=== PATIENT | male | born 1985 | race Caucasian/White ===

== ENCOUNTER 2023-05-06 09:25 | Emergency (ER) | payer MEDICARE, MEDICAID, SELFPAY ==
--- NOTE | ~2023-05-06 | US_ITS ---
EXAMINATION: US ABDOMEN LIMITED CLINICAL INFORMATION: Right upper quadrant pain. COMPARISON: None available. TECHNIQUE: Real-time imaging of the right upper quadrant abdominal viscera. FINDINGS: PANCREAS: Normal. LIVER: Mild increased echogenicity suggestive of fatty infiltration. There are multiple hyperechoic foci liver potentially reflecting hemangiomas. Largest of these anteriorly in the left lobe 7.5 cm. MR liver correlation would be recommended when feasible. GALLBLADDER: No appreciable calcific cholelithiasis. Gallbladder wall thickness 1.2 cm with gallbladder appearing partially contracted. Possible tiny pericholecystic fluid or fluid in the gallbladder wall. COMMON BILE DUCT: Normal in caliber measuring 0.3 cm in diameter. RIGHT KIDNEY: Normal. No hydronephrosis. No renal calculi or focal parenchymal lesions. The kidney measures 13.6 cm in maximum dimension. FREE FLUID: None. US/US abdomen limited IMPRESSION: Gallbladder wall is thickened at 1.2 cm. Possible tiny pericholecystic fluid. No calcific cholelithiasis or biliary dilatation. Multiple hyperechoic foci of the liver potentially reflecting hemangiomas. MR liver correlation would be recommended when feasible.
[2023-05-06 09:30] VITALS: BP 133/88; PULSE 75; RESP 18; TEMP 36.5; O2SAT 98; BMI 31.8
[2023-05-06 09:55] VITALS: BP 123/78; PULSE 61; RESP 18; TEMP 36.7; O2SAT 94
--- NOTE | 2023-05-06 10:05 | ED.ABDPAIN ---
HPI - Abdominal Pain General Chief Complaint: Abdominal Pain Stated Complaint: Nausea Stomach Pain Time Seen by Provider: 05/06/23 09:56 Source: patient Mode of arrival: ambulatory Limitations: no limitations History of Present Illness HPI narrative: 37-year-old male with a history of hepatitis-C which was treated 10 years ago, IV drug abuse last use 1 month ago, daily alcohol use who presents the ER with complaints of fatigue, nausea, vomiting, upper abdominal pain in the last week. Patient reports he woke up this morning noticing that his eyes were yellow in appearance. Patient reports he drinks 4-5 drinks daily. He does have history of IV drug use but has not used and more than 1 month. No fevers, chills, constipation, diarrhea Related Data Home Medications Medication Instructions Recorded Confirmed buprenorphine 12 mg-naloxone 3 mg 1 film sublingual DAILY 05/06/23 05/06/23 sublingual film (Suboxone) clonidine HCl 0.1 mg tablet 0.1 mg PO DAILY 05/06/23 05/06/23 clonidine HCl 0.3 mg tablet 0.3 mg PO BEDTIME 05/06/23 05/06/23 cyanocobalamin (vitamin B-12) 1,000 mcg PO DAILY 05/06/23 05/06/23 1,000 mcg tablet (Vitamin B-12) dextroamphetamine-amphetamine 15 1 tab PO DAILY 05/06/23 05/06/23 mg tablet dextroamphetamine-amphetamine ER 1 cap PO BID@0800,1200 05/06/23 05/06/23 30 mg 24hr capsule,extend release doxepin 50 mg capsule 50 mg PO BEDTIME 05/06/23 05/06/23 hydroxyzine pamoate 50 mg capsule 100 mg PO BEDTIME 05/06/23 05/06/23 pantoprazole 40 mg tablet,delayed 40 mg PO DAILY@0630 05/06/23 05/06/23 release Allergies Allergy/AdvReac Type Severity Reaction Status Date / Time No Known Allergies Allergy Verified 05/06/23 10:04 Review of Systems Review of Systems Yes all other systems are reviewed and are negative Constitutional: Reports no additional constitutional complaints, Denies body ache(s), Denies chills, Reports fatigue, Denies fever(s), Denies headache(s) and Denies weakness Eyes: Reports no additional eye complaints and Denies change in vision Reports system reviewed and no additional complaints, except as documented, Denies dizziness, Denies headache(s), Denies nasal congestion, Denies nasal discharge and Denies neck pain Cardiovascular: Reports no additional cardiovascular complaints, Denies chest pain, Denies leg edema and Denies dyspnea Respiratory: Reports no additional respiratory complaints, Denies cough and Denies dyspnea Gastrointestinal: Reports no additional gastrointestinal complaints, Reports abdominal pain, Denies diarrhea, Reports nausea and Reports vomiting Genitourinary: Denies urinary incontinence Musculoskeletal: Reports no additional musculoskeletal complaints, Denies back pain, Denies arthralgias, Denies joint swelling, Denies neck pain, Denies numbness and Denies tingling Skin/Breast: Reports system reviewed and no additional complaints, except as docu and Denies rash Reports system reviewed and no additional complaints, except as documented, Denies dizziness, Denies headache(s), Denies numbness, Denies tingling and Denies weakness Endocrine: Reports fatigue PMFSH Past Medical History Attestation statement: The following information was validated with the patient. Source: old records reviewed and nursing notes reviewed Social History Social History Alcohol intake: current Alcohol intake frequency: 3 or more drinks per day Alcohol type: hard liquor Smoked in Last 30 Days: Yes Substance Use Type: Former Substance User Advance Directives: No Advance Directives Information Provided: Yes Physical Exam ED Vital Signs: Vital Signs - 24 hr 05/06/23 09:30 05/06/23 09:55 05/06/23 11:10 Temperature 97.7 F 98.1 F Pulse Rate 75 61 60 Respiratory Rate 18 18 16 Blood Pressure 133/88 123/78 125/85 Pulse Oximetry 98 94 96 Oxygen Delivery Method Room Air Room Air Room Air 05/06/23 14:16 05/06/23 14:36 Temperature 97.7 F Pulse Rate 60 60 Respiratory Rate 10 L 14 Blood Pressure 122/84 140/78 H Pulse Oximetry 96 98 Oxygen Delivery Method Room Air Room Air BMI result Body Mass Index 31.8 Const General: cooperative, healthy appearing, comfortable and no acute distress Orientation/consciousness: patient oriented x3 Limitations: no limitations HENMT Head: Yes normal to inspection Eyes Other: scleral icterus Neck Neck: Yes normal visual inspection Chest Chest palpation & inspection: normal inspection of the chest Resp Effort & Inspection: normal respiratory effort Auscultation: clear to auscultation bilaterally Cardio Rate: regular rate Rhythm: regular rhythm Peripheral pulses: Peripheral pulses 2+ throughout GI Inspection: Yes normal to inspection Palpation (GI): Soft to palpation and Tenderness to palpation present (GI) (Epigastric tenderness with no rebound or guarding) General: Yes no CVA tenderness Back/Spine/Pelvis Back: no CVA tenderness Thoracic/Lumbar Spine: thoracic and lumbar spine normal to inspection Skin General skin exam: no rashes or lesions noted Neuro General: patient oriented x3 Cognition (Neuro): normal cognition Gait exam (Neuro): Normal gait present Course Course Course Narrative: Sign out to Ehsan ALVA pending US and admit Medical Decision Making Medical Decision Making [facility] Narrative: This is 37-year-old male who has a history of daily alcohol use, substance abuse, hep C which was treated 10 years ago who presents to the ER with 1 week of fatigue, upper abdominal pain, nausea and vomiting with waking with yellowing of the eyes. On exam patient with abdominal tenderness epigastric with no rebound or guarding Scleral icterus on exam Will need labs Likely advanced imaging Will place IV and give IV fluid, antimetic Differential Diagnosis Differential Diagnoses: The differential diagnosis associated with the presentation includes Cholecystitis, cholelithiasis, pancreatitis, alcoholic hepatitis, hepatitis Low concern for ingestion to suggest apap toxicity Admission/Observation Consideration of admission/observation: Escalation of care including admission/observation considered Acute hepatic failure Consult Healthcare Provider Management of the patient was discussed with: Hospitalist Spoke to Dr. Huang-if no surgical intervention they will admit the patient Lab Data [facility] Lab Attestation statement: I reviewed the patient's lab results. 05/06/23 10:29 05/06/23 12:18 Labs: Lab Results 05/06/23 05/06/23 05/06/23 Range/Units 10:14 10:14 10:29 WBC (4.8-10.8) X10*3/uL RBC (4.60-5.80) X10*6/uL Hgb (14.0-18.0) g/dl Hct (42.0-52.0) % MCV (80.0-98.0) fL MCH (27.0-33.0) pg MCHC (31.0-36.0) g/dl RDW (11.0-16.0) % Plt Count (160-400) X10*3/uL MPV (9.4-12.4) fL Immature Gran % (Auto) (0.0-0.4) % Neut % (Auto) (45-73) % Lymph % (Auto) (20-40) % [place] % (Auto) (2-11) % Eos % (Auto) (0-4) % Baso % (Auto) (0-2) % Lymph # (Auto) (1.2-4.9) X10*3/uL [place] # (Auto) (0.1-1.2) X10*3/uL Eos # (Auto) (0.0-0.4) X10*3/uL Baso # (Auto) (0.0-0.2) X10*3/uL Abs Immat Gran (auto) (0.00-0.03) X10*3/uL Absolute Neuts (auto) (2.0-8.3) x10*3/uL Absolute Nucleated RBC (0.0-0.012) X10*3/uL Nucleated RBC % (auto) (0.0-0.2) /100WBC PT (10.0-13.1) SEC INR (0.9-1.1) Sodium (135-145) mmol/L Potassium (3.3-5.1) mmol/L Chloride (96-108) mmol/L Carbon Dioxide (22-29) mmol/L Anion Gap (12-20) BUN (9-16) mg/dL Creatinine (0.5-1.4) mg/dL Estim Creat Clear Calc Estimated GFR Random Glucose (60-115) mg/dL Calcium (8.4-10.2) mg/dL Magnesium (1.6-2.6) mg/dL Total Bilirubin (0.0-1.0) mg/dL Direct Bilirubin (0.0-0.5) mg/dL AST (5-37) U/L ALT (0-40) U/L Alkaline Phosphatase (39-117) U/L Total Protein (6.5-8.0) g/dL Albumin (3.5-5.0) g/dL Lipase (8-78) U/L Urine Color [place] Urine Appearance Hazy Urine pH 5.5 (5.0-9.0) Ur Specific [place] 1.020 (1.005-1.025) Urine Protein See Note (Neg-Trace) mg/dL Urine Glucose (UA) Negative (Negative) mg/dL Urine Ketones See Note (Negative) mg/dL Urine Blood Trace (Negative) Urine Nitrite See Note (Negative) Ur Leukocyte Esterase Negative (Negative) Urine RBC 11-20 H (0-2) /HPF Urine WBC 0-5 (0-5) /HPF Ur Squamous Epith Cells 0-2 (0-2) /HPF Urine Bacteria None Seen (None Seen) Hyaline Casts 3-5 (0-2) /LPF Urine Opiates Screen Not Detected (Not Detect) Urine Fentanyl Screen POSITIVE H (Not Detect) Acetaminophen (<30) mcg/mL Ur Barbiturates Screen Not Detected (Not Detect) Ur Phencyclidine Scrn Not Detected (Not Detect) Ur Amphetamines Screen POSITIVE H (Not Detect) U Benzodiazepines Scrn Not Detected (Not Detect) Urine Cocaine Screen Not Detected (Not Detect) U Marijuana (THC) Screen POSITIVE H (Not Detect) Ethyl Alcohol mg/dL Hepatitis A IgM Ab Nonreactive (Nonreactive) Hep Bs Antigen Negative (Negative) Hep Bs Antibody REACTIVE (Nonreactive) Hep B Core Total Ab Nonreactive (Nonreactive) Hepatitis C Ab (EIA) Reactive H (Nonreactive) 05/06/23 05/06/23 05/06/23 Range/Units 10:29 10:29 10:29 WBC 9.1 (4.8-10.8) X10*3/uL RBC 5.32 (4.60-5.80) X10*6/uL Hgb 15.6 (14.0-18.0) g/dl Hct 45.1 (42.0-52.0) % MCV 84.8 (80.0-98.0) fL MCH 29.3 (27.0-33.0) pg MCHC 34.6 (31.0-36.0) g/dl RDW 14.1 (11.0-16.0) % Plt Count 115 L (160-400) X10*3/uL MPV 12.4 (9.4-12.4) fL Immature Gran % (Auto) 0.2 (0.0-0.4) % Neut % (Auto) 38.8 L (45-73) % Lymph % (Auto) 46.9 H (20-40) % [place] % (Auto) 11.4 H (2-11) % Eos % (Auto) 2.2 (0-4) % Baso % (Auto) 0.5 (0-2) % Lymph # (Auto) 4.3 (1.2-4.9) X10*3/uL [place] # (Auto) 1.0 (0.1-1.2) X10*3/uL Eos # (Auto) 0.2 (0.0-0.4) X10*3/uL Baso # (Auto) 0.1 (0.0-0.2) X10*3/uL Abs Immat Gran (auto) 0.02 (0.00-0.03) X10*3/uL Absolute Neuts (auto) 3.5 (2.0-8.3) x10*3/uL Absolute Nucleated RBC 0.000 (0.0-0.012) X10*3/uL Nucleated RBC % (auto) 0.0 (0.0-0.2) /100WBC PT 11.2 (10.0-13.1) SEC INR 1.0 (0.9-1.1) Sodium (135-145) mmol/L Potassium (3.3-5.1) mmol/L Chloride (96-108) mmol/L Carbon Dioxide (22-29) mmol/L Anion Gap (12-20) BUN (9-16) mg/dL Creatinine (0.5-1.4) mg/dL Estim Creat Clear Calc Estimated GFR Random Glucose (60-115) mg/dL Calcium (8.4-10.2) mg/dL Magnesium (1.6-2.6) mg/dL Total Bilirubin (0.0-1.0) mg/dL Direct Bilirubin (0.0-0.5) mg/dL AST (5-37) U/L ALT (0-40) U/L Alkaline Phosphatase (39-117) U/L Total Protein (6.5-8.0) g/dL Albumin (3.5-5.0) g/dL Lipase (8-78) U/L Urine Color Urine Appearance Urine pH (5.0-9.0) Ur Specific [place] (1.005-1.025) Urine Protein (Neg-Trace) mg/dL Urine Glucose (UA) (Negative) mg/dL Urine Ketones (Negative) mg/dL Urine Blood (Negative) Urine Nitrite (Negative) Ur Leukocyte Esterase (Negative) Urine RBC (0-2) /HPF Urine WBC (0-5) /HPF Ur Squamous Epith Cells (0-2) /HPF Urine Bacteria (None Seen) Hyaline Casts (0-2) /LPF Urine Opiates Screen (Not Detect) Urine Fentanyl Screen (Not Detect) Acetaminophen (<30) mcg/mL Ur Barbiturates Screen (Not Detect) Ur Phencyclidine Scrn (Not Detect) Ur Amphetamines Screen (Not Detect) U Benzodiazepines Scrn (Not Detect) Urine Cocaine Screen (Not Detect) U Marijuana (THC) Screen (Not Detect) Ethyl Alcohol < 10 mg/dL Hepatitis A IgM Ab (Nonreactive) Hep Bs Antigen (Negative) Hep Bs Antibody (Nonreactive) Hep B Core Total Ab (Nonreactive) Hepatitis C Ab (EIA) (Nonreactive) 05/06/23 05/06/23 Range/Units 12:18 16:05 WBC (4.8-10.8) X10*3/uL RBC (4.60-5.80) X10*6/uL Hgb (14.0-18.0) g/dl Hct (42.0-52.0) % MCV (80.0-98.0) fL MCH (27.0-33.0) pg MCHC (31.0-36.0) g/dl RDW (11.0-16.0) % Plt Count (160-400) X10*3/uL MPV (9.4-12.4) fL Immature Gran % (Auto) (0.0-0.4) % Neut % (Auto) (45-73) % Lymph % (Auto) (20-40) % [place] % (Auto) (2-11) % Eos % (Auto) (0-4) % Baso % (Auto) (0-2) % Lymph # (Auto) (1.2-4.9) X10*3/uL [place] # (Auto) (0.1-1.2) X10*3/uL Eos # (Auto) (0.0-0.4) X10*3/uL Baso # (Auto) (0.0-0.2) X10*3/uL Abs Immat Gran (auto) (0.00-0.03) X10*3/uL Absolute Neuts (auto) (2.0-8.3) x10*3/uL Absolute Nucleated RBC (0.0-0.012) X10*3/uL Nucleated RBC % (auto) (0.0-0.2) /100WBC PT (10.0-13.1) SEC INR (0.9-1.1) Sodium 134 L (135-145) mmol/L Potassium 4.9 (3.3-5.1) mmol/L Chloride 110 H (96-108) mmol/L Carbon Dioxide 18 L (22-29) mmol/L Anion Gap 11 L (12-20) BUN 7 L (9-16) mg/dL Creatinine 0.51 (0.5-1.4) mg/dL Estim Creat Clear Calc 249.9 Estimated GFR > 60 Random Glucose 114 (60-115) mg/dL Calcium 7.7 L (8.4-10.2) mg/dL Magnesium 1.8 (1.6-2.6) mg/dL Total Bilirubin 6.3 H (0.0-1.0) mg/dL Direct Bilirubin 3.5 H (0.0-0.5) mg/dL AST 369 H (5-37) U/L ALT 724 H (0-40) U/L Alkaline Phosphatase 363 H (39-117) U/L Total Protein 5.6 L (6.5-8.0) g/dL Albumin 2.4 L (3.5-5.0) g/dL Lipase 26 (8-78) U/L Urine Color Urine Appearance Urine pH (5.0-9.0) Ur Specific [place] (1.005-1.025) Urine Protein (Neg-Trace) mg/dL Urine Glucose (UA) (Negative) mg/dL Urine Ketones (Negative) mg/dL Urine Blood (Negative) Urine Nitrite (Negative) Ur Leukocyte Esterase (Negative) Urine RBC (0-2) /HPF Urine WBC (0-5) /HPF Ur Squamous Epith Cells (0-2) /HPF Urine Bacteria (None Seen) Hyaline Casts (0-2) /LPF Urine Opiates Screen (Not Detect) Urine Fentanyl Screen (Not Detect) Acetaminophen < 17 (<30) mcg/mL Ur Barbiturates Screen (Not Detect) Ur Phencyclidine Scrn (Not Detect) Ur Amphetamines Screen (Not Detect) U Benzodiazepines Scrn (Not Detect) Urine Cocaine Screen (Not Detect) U Marijuana (THC) Screen (Not Detect) Ethyl Alcohol mg/dL Hepatitis A IgM Ab (Nonreactive) Hep Bs Antigen (Negative) Hep Bs Antibody (Nonreactive) Hep B Core Total Ab (Nonreactive) Hepatitis C Ab (EIA) (Nonreactive) Independent Interpretation I performed an independent interpretation of an: Plain X-Ray and Ultrasound Radiology Impression Discussion of test interpretation with radiology: I have reviewed the radiologist's reading. Medications Administered Discontinued Medications Generic Name Dose Route Start Last Admin Trade Name Freq PRN Reason Stop Dose Admin Sodium Chloride 1,000 mls @ 999 mls/hr 05/06/23 10:01 05/06/23 11:53 Ns IV 05/06/23 11:01 Infused .Q1H1M STA Infusion Morphine Sulfate 4 mg 05/06/23 14:20 05/06/23 14:47 Morphine Sulfate 4 Mg/Ml Cartridge IVPUSH 05/06/23 14:21 4 mg ONCE ONE Administration Protocol Nicotine 21 mg 05/06/23 12:11 05/06/23 12:16 Nicotine 21 Mg Patch.[id number] TRANSDERMA 05/06/23 12:12 21 mg ONCE ONE Administration Ondansetron HCl 4 mg 05/06/23 10:01 05/06/23 11:13 Ondansetron Hcl 4 Mg/2 Ml Vial IVPUSH 05/06/23 10:02 4 mg ONCE ONE Administration Discharge Plan Discharge Clinical Impression: Acute hepatic failure, Hepatitis C Patient Disposition: Admitted As Inpatient
[2023-05-06 10:21] LABS: Appearance Urine Hazy; Color Urine Orange; Glucose Urine UA Negative (Negative); Leukocyte Esterase Urine Negative (Negative); PH 5.5 (5.0-9.0); UMIC TRIGGER UACC YES; Urine Blood Trace (Negative)
[2023-05-06 10:26] LABS: Bacteria Urine None Seen (None Seen); Squamous Epithelial Cell Urine 0-2 /HPF (0-2); WBC Urine 0-5 /HPF (0-5)
[2023-05-06] MEDS: 0.9 % Sodium Chloride 1,000 ML 999 ML IV (10:30)
[2023-05-06 10:35] LABS: MANUAL DIFF FLAG NO
[2023-05-06 10:42] LABS: Basophils Absolute Auto 0.1 X10*3/uL (0.0-0.2); Basophils Percent Auto 0.5 % (0-2); Eosinophils Absolute Auto 0.2 X10*3/uL (0.0-0.4); Eosinophils Percent Auto 2.2 % (0-4); Hematocrit 45.1 % (42.0-52.0); Hemoglobin 15.6 g/dl (14.0-18.0); Imm Gran Abs Auto 0.02 X10*3/uL (0.00-0.03); Imm Gran Pct Auto 0.2 % (0.0-0.4); Lymphocytes Absolute Auto 4.3 X10*3/uL (1.2-4.9); Lymphocytes Percent Auto 46.9 % (20-40); Mean Corpuscular HGB Conc 34.6 g/dl (31.0-36.0); Mean Corpuscular Hemoglobin 29.3 pg (27.0-33.0); Mean Corpuscular Volume 84.8 fL (80.0-98.0); Mean Platelet Volume 12.4 fL (9.4-12.4); Monocytes Percent Auto 11.4 % (2-11); Neutrophils Absolute Auto 3.5 x10*3/uL (2.0-8.3); Neutrophils Percent Auto 38.8 % (45-73); Platelet Count 115 X10*3/uL (160-400); Prothrombin Time 11.2 SEC (10.0-13.1); Red Blood Count 5.32 X10*6/uL (4.60-5.80); Red Cell Distribution Width 14.1 % (11.0-16.0); White Blood Count 9.1 X10*3/uL (4.8-10.8)
[2023-05-06 11:10] VITALS: BP 125/85; PULSE 60; RESP 16; O2SAT 96
[2023-05-06] MEDS: ondansetron HCL 4 MG/2 ML VIAL IVPUSH (11:13)
[2023-05-06 11:27] LABS: Ethanol < 10 mg/dL
[2023-05-06 11:49] LABS: HBS Num1 163.53 mIU/mL (0-7.99); HBc Num1 0.24 S/CO (0.00-0.79); HBsAGNum1 0.27 S/CO (0.00-0.99); Hepatitis A Antibody IgM 0.25 Index (0-0.79); Hepatitis B Core Antibody Nonreactive (Nonreactive); Hepatitis B Surface Antigen Negative (Negative); ~Hepatitis A Antibody IgM Nonreactive (Nonreactive); ~Hepatitis B Surface Antibody REACTIVE (Nonreactive); ~Hepatitis C Antibody Reactive (Nonreactive)
[2023-05-06] MEDS: Nicotine 21 MG PATCH.TD24 TRANSDERMA (12:16)
[2023-05-06 13:23] LABS: Amphetamine Screen Urine POSITIVE (Not Detect); Barbiturates, Urine Not Detected (Not Detect); Benzodiazepines Screen Urine Not Detected (Not Detect); Cannabinoid Screen Urine POSITIVE (Not Detect); Cocaine Screen Urine Not Detected (Not Detect); Fentanyl, urine POSITIVE (Not Detect); Opiate Screen Urine Not Detected (Not Detect); Phencyclidine Screen Urine Not Detected (Not Detect)
[2023-05-06 13:54] LABS: Anion Gap 11 (12-20)
[2023-05-06 14:02] LABS: Alanine Aminotransferase 724 U/L (0-40); Albumin Level 2.4 g/dL (3.5-5.0); Alkaline Phosphatase 363 U/L (39-117); Aspartate Amino Transferase 369 U/L (5-37); Bilirubin Direct 3.5 mg/dL (0.0-0.5); Bilirubin Total 6.3 mg/dL (0.0-1.0); Blood Urea Nitrogen 7 mg/dL (9-16); Calcium 7.7 mg/dL (8.4-10.2); Carbon Dioxide 18 mmol/L (22-29); Chloride 110 mmol/L (96-108); Creatinine Clr Calc Pharmacy 249.9; Estimated Glomerular Filt Rate > 60; Glucose Random 114 mg/dL (60-115); Lipase 26 U/L (8-78); Magnesium 1.8 mg/dL (1.6-2.6); Potassium 4.9 mmol/L (3.3-5.1); Sodium 134 mmol/L (135-145); Total Protein 5.6 g/dL (6.5-8.0)
[2023-05-06 14:16] VITALS: BP 122/84; PULSE 60; RESP 10; O2SAT 96
[2023-05-06 14:36] VITALS: BP 140/78; PULSE 60; RESP 14; TEMP 36.5; O2SAT 98
[2023-05-06] MEDS: Morphine Sulfate 4 MG/ML CARTRIDGE IVPUSH (14:47)
--- NOTE | 2023-05-06 14:56 | PC.NURSE ---
pt a&ox4, vss, medicated for 7/10 abd pain, CIWA 0, denies any nausea at this time. resting quietly, pending u/s.
--- NOTE | 2023-05-06 15:43 | PHA.MEDREC ---
Pharmacy Consult ? Medication Reconciliation Pharmacy has completed the medication reconciliation. spoke with patient and confirmed his medications. He also has prescriptions for gabapentin and pregabalin but states he is not currently taking those due to his situation.
[2023-05-06 16:30] LABS: Acetaminophen LAB < 17 mcg/mL (<30)
--- NOTE | 2023-05-06 17:03 | PM.IMHP ---
History of Present Illness Date of Service: 05/06/23 Attending physician on admission: Prasad Huang Chief Complaint: Abdominal Pain Pt is a 37-year-old male with a PMH significant for?hepatitis C treated 10 years ago, IVDU last used around 1 month ago, daily alcohol consumption of 4-5 drinks, who presents to the ED with? In the ED labs were significant for total bilirubin of 6.3, AST 369, ALT 724, alk-phos 363, albumin 2.4, UA likely negative for UTI. Tox screen positive for fentanyl, amphetamines, and marijuana. Alcohol less than 10. CXR showed Abdominal ultrasound found gallbladder wall thickening of 1.2 cm with possible tiny pericholecystic fluid. Also found multiple hyperechoic foci the liver potentially affecting hemangiomas. EKG demonstrated Pt was treated with IVF, ondansetron, and morphine. Pt will be admitted to the hospital [facility] Social History Alcohol intake: current Alcohol intake frequency: 3 or more drinks per day Alcohol type: hard liquor Smoked in Last 30 Days: Yes Substance Use Type: Former Substance User Advance Directives: No Advance Directives Information Provided: Yes Meds Allergies Allergy/AdvReac Type Severity Reaction Status Date / Time No Known Allergies Allergy Verified 05/06/23 10:04 Active Medications: Current Medications Pharmacy Consult (Consult Rx Perform Med Rec) 1 each MISCELLANE ONCE PRN PRN Reason: Consult order Home Medications Medication Instructions Recorded Confirmed Last Taken Type buprenorphine 12 mg-naloxone 3 mg 1 film sublingual DAILY 05/06/23 05/06/23 Unknown History sublingual film (Suboxone) clonidine HCl 0.1 mg tablet 0.1 mg PO DAILY 05/06/23 05/06/23 Unknown History clonidine HCl 0.3 mg tablet 0.3 mg PO BEDTIME 05/06/23 05/06/23 Unknown History cyanocobalamin (vitamin B-12) 1,000 mcg PO DAILY 05/06/23 05/06/23 Unknown History 1,000 mcg tablet (Vitamin B-12) dextroamphetamine-amphetamine 15 1 tab PO DAILY 05/06/23 05/06/23 Unknown History mg tablet dextroamphetamine-amphetamine ER 1 cap PO BID@0800,1200 05/06/23 05/06/23 Unknown History 30 mg 24hr capsule,extend release doxepin 50 mg capsule 50 mg PO BEDTIME 05/06/23 05/06/23 Unknown History hydroxyzine pamoate 50 mg capsule 100 mg PO BEDTIME 05/06/23 05/06/23 Unknown History pantoprazole 40 mg tablet,delayed 40 mg PO DAILY@0630 05/06/23 05/06/23 Unknown History release Physical Exam Vital Signs and Narrative: Vital Signs: Last Vital Signs Temp 97.7 F 05/06/23 14:36 Pulse 60 05/06/23 14:36 Resp 14 05/06/23 14:36 BP 140/78 H 05/06/23 14:36 Pulse Ox 98 05/06/23 14:36 O2 Del Method Room Air 05/06/23 14:36 BMI result Body Mass Index 31.8 Results Labs 05/06/23 10:29 05/06/23 12:18 Labs: Laboratory Results - last 24 hr 05/06/23 05/06/23 05/06/23 10:14 10:14 10:29 MCV MCH MCHC RDW Plt Count MPV Immature Gran % (Auto) Neut % (Auto) Lymph % (Auto) [place] % (Auto) Eos % (Auto) Baso % (Auto) Lymph # (Auto) [place] # (Auto) Eos # (Auto) Baso # (Auto) Abs Immat Gran (auto) Absolute Neuts (auto) Absolute Nucleated RBC Nucleated RBC % (auto) PT INR Anion Gap Estim Creat Clear Calc Estimated GFR Random Glucose Calcium Magnesium Total Bilirubin Direct Bilirubin AST ALT Alkaline Phosphatase Total Protein Albumin Lipase Urine Color [place] Urine Appearance Hazy Urine pH 5.5 Ur Specific [place] 1.020 Urine Protein See Note Urine Glucose (UA) Negative Urine Ketones See Note Urine Blood Trace Urine Nitrite See Note Ur Leukocyte Esterase Negative Urine RBC 11-20 H Urine WBC 0-5 Ur Squamous Epith Cells 0-2 Urine Bacteria None Seen Hyaline Casts 3-5 Urine Opiates Screen Not Detected Urine Fentanyl Screen POSITIVE H Acetaminophen Ur Barbiturates Screen Not Detected Ur Phencyclidine Scrn Not Detected Ur Amphetamines Screen POSITIVE H U Benzodiazepines Scrn Not Detected Urine Cocaine Screen Not Detected U Marijuana (THC) Screen POSITIVE H Ethyl Alcohol Hepatitis A IgM Ab Nonreactive Hep Bs Antigen Negative Hep Bs Antibody REACTIVE Hep B Core Total Ab Nonreactive Hepatitis C Ab (EIA) Reactive H 05/06/23 05/06/23 05/06/23 10:29 10:29 10:29 MCV 84.8 MCH 29.3 MCHC 34.6 RDW 14.1 Plt Count 115 L MPV 12.4 Immature Gran % (Auto) 0.2 Neut % (Auto) 38.8 L Lymph % (Auto) 46.9 H [place] % (Auto) 11.4 H Eos % (Auto) 2.2 Baso % (Auto) 0.5 Lymph # (Auto) 4.3 [place] # (Auto) 1.0 Eos # (Auto) 0.2 Baso # (Auto) 0.1 Abs Immat Gran (auto) 0.02 Absolute Neuts (auto) 3.5 Absolute Nucleated RBC 0.000 Nucleated RBC % (auto) 0.0 PT 11.2 INR 1.0 Anion Gap Estim Creat Clear Calc Estimated GFR Random Glucose Calcium Magnesium Total Bilirubin Direct Bilirubin AST ALT Alkaline Phosphatase Total Protein Albumin Lipase Urine Color Urine Appearance Urine pH Ur Specific [place] Urine Protein Urine Glucose (UA) Urine Ketones Urine Blood Urine Nitrite Ur Leukocyte Esterase Urine RBC Urine WBC Ur Squamous Epith Cells Urine Bacteria Hyaline Casts Urine Opiates Screen Urine Fentanyl Screen Acetaminophen Ur Barbiturates Screen Ur Phencyclidine Scrn Ur Amphetamines Screen U Benzodiazepines Scrn Urine Cocaine Screen U Marijuana (THC) Screen Ethyl Alcohol < 10 Hepatitis A IgM Ab Hep Bs Antigen Hep Bs Antibody Hep B Core Total Ab Hepatitis C Ab (EIA) 05/06/23 05/06/23 12:18 16:05 MCV MCH MCHC RDW Plt Count MPV Immature Gran % (Auto) Neut % (Auto) Lymph % (Auto) [place] % (Auto) Eos % (Auto) Baso % (Auto) Lymph # (Auto) [place] # (Auto) Eos # (Auto) Baso # (Auto) Abs Immat Gran (auto) Absolute Neuts (auto) Absolute Nucleated RBC Nucleated RBC % (auto) PT INR Anion Gap 11 L Estim Creat Clear Calc 249.9 Estimated GFR > 60 Random Glucose 114 Calcium 7.7 L Magnesium 1.8 Total Bilirubin 6.3 H Direct Bilirubin 3.5 H AST 369 H ALT 724 H Alkaline Phosphatase 363 H Total Protein 5.6 L Albumin 2.4 L Lipase 26 Urine Color Urine Appearance Urine pH Ur Specific [place] Urine Protein Urine Glucose (UA) Urine Ketones Urine Blood Urine Nitrite Ur Leukocyte Esterase Urine RBC Urine WBC Ur Squamous Epith Cells Urine Bacteria Hyaline Casts Urine Opiates Screen Urine Fentanyl Screen Acetaminophen < 17 Ur Barbiturates Screen Ur Phencyclidine Scrn Ur Amphetamines Screen U Benzodiazepines Scrn Urine Cocaine Screen U Marijuana (THC) Screen Ethyl Alcohol Hepatitis A IgM Ab Hep Bs Antigen Hep Bs Antibody Hep B Core Total Ab Hepatitis C Ab (EIA) Imaging Radiologist's Impressions: Impressions Abdomen Ultrasound 05/06/23 15:52 IMPRESSION: Gallbladder wall is thickened at 1.2 cm. Possible tiny pericholecystic fluid. No calcific cholelithiasis or biliary dilatation. Multiple hyperechoic foci of the liver potentially reflecting hemangiomas. MR liver correlation would be recommended when feasible. Assessment and Plan Plan Will get HIDA scan tomorrow GI consult Hepatitis C Pt treated for Hep C around 10 years ago Hep C AB positive Will check viarl load Time Spent With Patient Time: Total time managing care of this patient today ____ minutes.
[2023-05-06 17:42] VITALS: BP 136/97; PULSE 83; RESP 13; TEMP 36.8; O2SAT 98
--- NOTE | 2023-05-06 17:44 | PC.NURSE ---
provider at bedside- pt requesting AMA. vs stable. aox4. CIWA 0.
[2023-05-08 15:28] LABS: HCV Log PCR 3.49 Log IU/mL (NOT DETECTED); HepC Viral Load 3100 IU/mL (NOT DETECTED)
== END 2023-05-06 18:00 | disposition left against medical advice (07) ==
PROVIDERS: Nurse Practitioner Family; Student in an Organized Health Care Education/Training Program; Emergency Provider Emergency Medicine; PCP Internal Medicine
DX: K72.00 Acute and subacute hepatic failure without coma (principal); B19.20 Unspecified viral hepatitis C without hepatic coma; R10.13 Epigastric pain; F19.10 Other psychoactive substance abuse, uncomplicated; F11.20 Opioid dependence, uncomplicated; F17.210 Nicotine dependence, cigarettes, uncomplicated; Z79.899 Other long term (current) drug therapy
CPT/HCPCS: 36415; 76705; 80048; 80076; 80143; 80307; 81001; 83690; 83735; 85025; 85610; 86704; 86706; 86709; 86803; 87340; 87522; 99285; J2270; J2405

== ENCOUNTER 2023-05-07 09:43 | Inpatient (IN) | payer MEDICARE, MEDICAID, SELFPAY ==
--- NOTE | ~2023-05-07 | MR_ITS ---
EXAMINATION: MR ABDOMEN WITHOUT CONTRAST CLINICAL INFORMATION: Elevated liver function tests COMPARISON: Previous ultrasound April 2023 TECHNIQUE: MR abdomen is performed without gadolinium contrast. MRCP sequences were also performed. FINDINGS: LUNG BASES: The visualized lung bases are unremarkable. LIVER, GALLBLADDER, AND BILIARY TREE: The liver is slightly enlarged, right lobe measuring 23.7 cm in length. The liver is normal in contour and signal. No focal hepatic lesion or biliary ductal dilatation is present. The common bile duct measures 5 mm. No common bile duct stone seen. The gallbladder is normal in size. The gallbladder wall is upper normal in size measuring 3 mm. There is pericholecystic fluid. No gallstones are seen. PANCREAS: Unremarkable. The main pancreatic duct is normal SPLEEN: Upper normal in size measuring 12.8 cm in length. ADRENAL GLANDS: Unremarkable. KIDNEYS AND URETERS: The kidneys are normal in size and shape. No hydronephrosis. No perinephric stranding. GASTROINTESTINAL TRACT: No bowel obstruction. No ascites or fluid collection. ABDOMINAL WALL: No significant hernia is appreciated. LYMPH NODES: No lymphadenopathy. VASCULAR: Unremarkable. OSSEOUS STRUCTURES: Marrow signal normal. MR/MR MRCP IMPRESSION: Enlarged liver. Normal caliber intra and extrahepatic bile ducts. No common bile duct stone seen. Upper normal thickness gallbladder wall. Pericholecystic fluid. No gallstones seen. Differential would gallbladder changes related to liver disease, cholangitis and acalculous cholecystitis. If there is clinical suspicion of acalculous cholecystitis, HIDA scan would be recommended. Upper normal-size spleen.
[2023-05-07 09:44] VITALS: BP 136/72; PULSE 80; RESP 18; TEMP 36.7; O2SAT 98; BMI 29.8
[2023-05-07 10:15] VITALS: BP 129/79; PULSE 70; RESP 16; TEMP 36.7; O2SAT 96
--- NOTE | 2023-05-07 10:29 | ED_ITS ---
HPI - General Adult General Chief complaint: Abdominal Pain Stated complaint: was here yesterday for liver failure Time Seen by Provider: 05/07/23 10:02 Source: patient Mode of arrival: ambulatory Limitations: no limitations History of Present Illness HPI narrative: 37 yold male with diagnosed with liver failure, has Hep C, and needed HIDA Scan yesterday and needed to be admitted, but signed out AMA returning to the ED to be admitted. Patient states sitll having same symptoms from yesterday whichc consisted of abdominal pain. patient has known gallbladder wall thickening. Related Data Home Medications Medication Instructions Recorded Confirmed buprenorphine 12 mg-naloxone 3 mg 1 film sublingual DAILY 05/06/23 05/07/23 sublingual film (Suboxone) clonidine HCl 0.3 mg tablet 0.3 mg PO BEDTIME 05/06/23 05/07/23 cyanocobalamin (vitamin B-12) 1,000 mcg PO DAILY 05/06/23 05/07/23 1,000 mcg tablet (Vitamin B-12) dextroamphetamine-amphetamine 15 1 tab PO DAILY@1800 05/06/23 05/07/23 mg tablet dextroamphetamine-amphetamine ER 1 cap PO BID@0800,1200 05/06/23 05/07/23 30 mg 24hr capsule,extend release doxepin 50 mg capsule 50 mg PO BEDTIME 05/06/23 05/07/23 hydroxyzine pamoate 50 mg capsule 100 mg PO BEDTIME 05/06/23 05/07/23 pantoprazole 40 mg tablet,delayed 40 mg PO DAILY@0630 05/06/23 05/07/23 release buprenorphine 300 mg/1.5 mL 300 mg subcut QMONTH 05/07/23 05/07/23 solution,exten.rel.subcutaneous syringe (Sublocade) gabapentin 300 mg capsule 600 mg PO TID 05/07/23 05/07/23 pregabalin 225 mg capsule 450 mg PO DAILY@1900 05/07/23 05/07/23 Allergies Allergy/AdvReac Type Severity Reaction Status Date / Time No Known Allergies Allergy Verified 05/06/23 10:04 Review of Systems Review of Systems: Abbdominal pain. Yes all other systems are reviewed and are negative PMFSH Social History Social History Alcohol intake: former Patient Tobacco Use Status: Current everyday Tobacco user Smoked in Last 30 Days: Yes Use of substances other than those prescribed or required for medical reasons: No Substance Use Type: Heroin Substance Use Frequency: Daily Last Used Substance: Just Prior to Admission Advance Directives: No Advance Directives Information Provided: No Nutrition Risks: No Nutritional Risk Physical Exam ED Vital Signs: Vital Signs - 24 hr 05/07/23 09:44 05/07/23 10:15 05/07/23 12:20 Temperature 98.1 F 98.1 F 98.7 F Pulse Rate 80 70 70 Respiratory Rate 18 16 14 Blood Pressure 136/72 129/79 146/85 H Pulse Oximetry 98 96 95 Oxygen Delivery Method Room Air Room Air Room Air 05/07/23 13:42 Temperature 98.7 F Pulse Rate 64 Respiratory Rate 14 Blood Pressure 128/83 Pulse Oximetry 98 Oxygen Delivery Method Room Air BMI result Body Mass Index 29.8 Const General: cooperative, healthy appearing, comfortable, no acute distress, well developed, alert and awake Orientation/consciousness: oriented to person, oriented to place, oriented to time and patient oriented x3 HENNM Head: Yes normal to inspection, Yes No palpable skull fracture present, Yes normocephalic, Yes atraumatic and No abrasion Eyes General: appearance normal, both eyes and all related structures Neck Neck: Yes normal visual inspection, Yes full ROM, Yes no lymphadenopathy, Yes no meningeal signs, Yes trachea midline, Yes supple, No anterior neck swelling and No tender Chest Chest palpation & inspection: normal inspection of the chest and normal palpation of entire chest wall Resp Effort & Inspection: normal respiratory effort and able to speak in complete sentences Auscultation: clear to auscultation bilaterally Cardio Jugular venous distension: no JVD Heart sounds: S1 normal heart sound present and S2 normal heart sound present GI Inspection: Yes normal to inspection and No abdominal wall ecchymosis Palpation (GI): Soft to palpation, not firm, nontender, no guarding and not rigid General: No CVA tenderness and Yes no CVA tenderness Back/Spine/Pelvis Back: no CVA tenderness, No CVA tenderness and No back tenderness Skin General skin exam: no rashes or lesions noted, elasticity normal and turgor normal Neuro General: oriented to person, oriented to place, oriented to time, patient oriented x3, gait normal, tone normal, moves all extremities, Normal light touch and pain sensation, no meningeal signs, no focal motor deficits, CN's II-XI intact bilaterally and normal sensation to monofilament Extrem General: Yes normal to inspection and Yes full ROM Psych Appearance: grossly normal, well kempt and not disheveled Course Course Course Narrative: Repeat labs ordered. Patient to be readmitted. Reevaluation(s) Reevaluation #1: Case discussed with hospitalist Dr. Angela who accepts patient for admission. Medications Administered Generic Name Dose Route Start Last Admin Trade Name Lizbet PRN Reason Stop Dose Admin Buprenorphine/Naloxone 1 film 05/07/23 15:30 05/07/23 15:39 Buprenorphine/Naloxone 12/3 Mg Film SUBLINGUAL 1 film DAILY BC Administration Cyanocobalamin 1,000 mcg 05/07/23 15:30 05/07/23 15:39 Cyanocobalamin (Vitamin B-12) 1,000 Mcg Tablet PO 1,000 mcg DAILY BC Administration Enoxaparin Sodium 40 mg 05/07/23 15:00 05/07/23 14:28 Enoxaparin Sodium 40 Mg/0.4 Ml Syringe SUBCUT 40 mg Q24H BC Administration Gabapentin 600 mg 05/07/23 15:30 05/07/23 15:39 Gabapentin 300 Mg Capsule PO 600 mg TID BC Administration Lactated Ringer's 1,000 mls @ 100 mls/hr 05/07/23 14:15 05/07/23 16:00 Lr IVCONT 100 mls/hr .Q10H BC Infusion Sodium Chloride 3 ml 05/07/23 16:00 05/07/23 14:29 0.9 % Sodium Chloride Flush 3 Ml Syringe IVFLUSH Not Given QSHIFT [facility] Medical Decision Making Medical Decision Making [facility] Narrative: 37-year-old male with known history of hepatitis-C liver failure will need HIDA scan for gallbladder wall thickening is agreeable to readmission after signing out against medical advice yesterday. Patient's skin is jaundice. Patient states presently not much abdominal pain. Labs shows still elevated liver enzymes. Patient to be admitted Differential Diagnosis Differential Diagnoses: The differential diagnosis associated with the presentation includes (Liver failure, cholecystitis, common bile duct dilatation, hep C) Admission/Observation Consideration of admission/observation: Escalation of care including admission/observation considered Consult Healthcare Provider Management of the patient was discussed with: Bruise Trimmer (Dr. Angela) Lab Data MDM Lab Attestation statement: I reviewed the patient's lab results. 05/07/23 10:31 05/07/23 10:31 Labs: Lab Results 05/07/23 05/07/23 05/07/23 Range/Units 10:31 10:31 10:31 WBC 8.6 (4.8-10.8) X10*3/uL RBC 5.08 (4.60-5.80) X10*6/uL Hgb 14.9 (14.0-18.0) g/dl Hct 43.3 (42.0-52.0) % MCV 85.2 (80.0-98.0) fL MCH 29.3 (27.0-33.0) pg MCHC 34.4 (31.0-36.0) g/dl RDW 14.5 (11.0-16.0) % Plt Count 123 L (160-400) X10*3/uL MPV 12.1 (9.4-12.4) fL Immature Gran % (Auto) 0.3 (0.0-0.4) % Neut % (Auto) 39.9 L (45-73) % Lymph % (Auto) 44.7 H (20-40) % [place] % (Auto) 12.3 H (2-11) % Eos % (Auto) 2.1 (0-4) % Baso % (Auto) 0.7 (0-2) % Lymph # (Auto) 3.9 (1.2-4.9) X10*3/uL [place] # (Auto) 1.1 (0.1-1.2) X10*3/uL Eos # (Auto) 0.2 (0.0-0.4) X10*3/uL Baso # (Auto) 0.1 (0.0-0.2) X10*3/uL Abs Immat Gran (auto) 0.03 (0.00-0.03) X10*3/uL Absolute Neuts (auto) 3.4 (2.0-8.3) x10*3/uL Absolute Nucleated RBC 0.000 (0.0-0.012) X10*3/uL Nucleated RBC % (auto) 0.0 (0.0-0.2) /100WBC Smear Tech's Comments VERIFIED PT 11.0 (10.0-13.1) SEC INR 1.0 (0.9-1.1) APTT 31.6 (26.0-36.4) SEC Sodium 139 (135-145) mmol/L Potassium 4.2 (3.3-5.1) mmol/L Chloride 107 (96-108) mmol/L Carbon Dioxide 27 (22-29) mmol/L Anion Gap 9 L (12-20) BUN 7 L (9-16) mg/dL Creatinine 0.66 (0.5-1.4) mg/dL Estim Creat Clear Calc 187.4 Estimated GFR > 60 Random Glucose 110 (60-115) mg/dL Calcium 8.7 D (8.4-10.2) mg/dL Total Bilirubin 8.1 H (0.0-1.0) mg/dL AST 287 H (5-37) U/L ALT 700 H (0-40) U/L Alkaline Phosphatase 442 H (39-117) U/L Total Protein 6.6 (6.5-8.0) g/dL Albumin 3.1 L (3.5-5.0) g/dL Lipase 21 (8-78) U/L Discharge Plan Discharge Clinical Impression: Elevated LFTs Patient Disposition: Admitted As Inpatient Interventions: Admission Worksheet (ED) Last Done: 05/07/23 16:40 Discharge Date/Time: 05/07/23 16:43
[2023-05-07 10:44] LABS: PLT CLUMP 1; SCAN SMEAR FLAG 1
[2023-05-07 10:46] LABS: Basophils Absolute Auto 0.1 X10*3/uL (0.0-0.2); Basophils Percent Auto 0.7 % (0-2); Eosinophils Absolute Auto 0.2 X10*3/uL (0.0-0.4); Eosinophils Percent Auto 2.1 % (0-4); Hematocrit 43.3 % (42.0-52.0); Hemoglobin 14.9 g/dl (14.0-18.0); Imm Gran Abs Auto 0.03 X10*3/uL (0.00-0.03); Imm Gran Pct Auto 0.3 % (0.0-0.4); Lymphocytes Absolute Auto 3.9 X10*3/uL (1.2-4.9); Lymphocytes Percent Auto 44.7 % (20-40); MANUAL DIFF FLAG SCAN; Mean Corpuscular HGB Conc 34.4 g/dl (31.0-36.0); Mean Corpuscular Hemoglobin 29.3 pg (27.0-33.0); Mean Corpuscular Volume 85.2 fL (80.0-98.0); Mean Platelet Volume 12.1 fL (9.4-12.4); Monocytes Absolute Auto 1.1 X10*3/uL (0.1-1.2); Monocytes Percent Auto 12.3 % (2-11); Neutrophils Absolute Auto 3.4 x10*3/uL (2.0-8.3); Neutrophils Percent Auto 39.9 % (45-73); Red Blood Count 5.08 X10*6/uL (4.60-5.80); Red Cell Distribution Width 14.5 % (11.0-16.0)
[2023-05-07 10:55] LABS: Partial Thromboplastin Time 31.6 SEC (26.0-36.4); Platelet Count 123 X10*3/uL (160-400); White Blood Count 8.6 X10*3/uL (4.8-10.8)
[2023-05-07 11:04] LABS: SLIDE REVIEW VERIFIED
[2023-05-07 11:14] LABS: Alanine Aminotransferase 700 U/L (0-40); Albumin Level 3.1 g/dL (3.5-5.0); Alkaline Phosphatase 442 U/L (39-117); Anion Gap 9 (12-20); Aspartate Amino Transferase 287 U/L (5-37); Bilirubin Total 8.1 mg/dL (0.0-1.0); Blood Urea Nitrogen 7 mg/dL (9-16); Calcium 8.7 mg/dL (8.4-10.2); Carbon Dioxide 27 mmol/L (22-29); Chloride 107 mmol/L (96-108); Creatinine Clr Calc Pharmacy 187.4; Estimated Glomerular Filt Rate > 60; Glucose Random 110 mg/dL (60-115); Lipase 21 U/L (8-78); Potassium 4.2 mmol/L (3.3-5.1); Sodium 139 mmol/L (135-145); Total Protein 6.6 g/dL (6.5-8.0)
--- NOTE | 2023-05-07 11:20 | PC.NURSE ---
pt a&ox4, vss, 22G IV placed left forearm, pt reporting 4/10 RUQ abd pain, denies nausea/vomiting. resting quietly, no new orders at this time.
--- NOTE | 2023-05-07 11:30 | PC.NURSE ---
aox4. abd cramping. no acute resp distress. denies cp/sob. resting calmly.
[2023-05-07 12:20] VITALS: BP 146/85; PULSE 70; RESP 14; TEMP 37.1; O2SAT 95
[2023-05-07 13:42] VITALS: BP 128/83; PULSE 64; RESP 14; TEMP 37.1; O2SAT 98
--- NOTE | 2023-05-07 14:03 | PM.IMHP ---
History of Present Illness Date of Service: 05/07/23 Attending physician on admission: Prasad Huang Chief Complaint: Abdominal pain Pt is a 37-year-old male with a PMH significant for IVDU now on Suboxone last used 1 month ago, hepatitis C treated 10 years ago, and daily consumption?who presents to the ED with?nausea, vomiting, abdominal pain since last week. Patient states that his symptoms began on Thursday of last week with nausea and vomiting. He began developing abdominal pain on on Thursday and Thursday, eventually becoming unbearable by Thursday. Patient describes pain as crampy in nature and rates it an 8 of 10 at its worst, primary located in his upper abdomen. Patient has been feeling bloated and gassy during this time. Noticed his eyes were yellow sometime over the weekend, and reports orange and hazy urine for the past week. Patient states that he was treated for hepatitis-C around 10 years ago and has had no issues since then. Patient also has a history of IV drug use with heroin and cocaine, primarily injected in the upper extremities. Currently on Suboxone and last used 1 month ago. Patient also admits to drinking 4-5 drinks daily. Denies a history of withdrawal. 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 Of note, patient was set to be admitted to the hospitalist service yesterday, but patient was not ?ready? to be admitted and left to the ED a.m. a to then come back again today. In the ED labs on 05/07/2023 were significant for platelets of 123, bilirubin 8.1, AST 287, ALT 700, alk-phos 442, albumin 3.1. Renal function baseline. UA was hazy and orange in color, likely negative for UTI. Toxicology positive for fentanyl, marijuana, and amphetamines. Ethyl alcohol on 05/06 22 negative, negative for acetaminophen. Abdominal ultrasound found gallbladder wall thickening of 1.2 cm with possible tiny pericholecystic fluid, but no calcific cholelithiasis or biliary dilatation. Also found multiple hypoechoic foci of the liver potentially reflecting hemangiomas, suggest MRI of liver correlation. Hepatic portal vein was found to be patent. Pt will be admitted to the hospital for further treatment further evaluation of symptomatic transaminitis. Review of Systems Review of Systems: Nausea, vomiting Abdominal pain Jaundice Fatigue [place], cloudy urine Denies fever, chills, diarrhea Yes all other systems are reviewed and are negative PMFSH Social History Household Members: Significant Other Housing: House Do you presently have visiting nurse or other home services: No Alcohol intake: former Patient Tobacco Use Status: Current everyday Tobacco user Tobacco use type: Cigarette Smoked in Last 30 Days: Yes Patient Interested in Nicotine Replacement: Yes Patient Given Instructions on How to Stop Smoking: Yes Date Education Initiated: 05/07/23 Second Hand Smoke Exposure: Yes Use of substances other than those prescribed or required for medical reasons: Yes Substance Use Type: IV Drugs Substance Use Frequency: Occasionally Last Used Substance: Weeks (ago) Currently Displaying Signs/Symptoms of Drug Intoxication Withdrawal: No Any prior treatment program specific to substance use: No Have you been hit, kicked, punched, or otherwise hurt by someone within the past year? If so, by whom?: No Do you feel safe in your current relationship?: Yes Is there a partner from a previous relationship who is making you feel unsafe now?: No Are you made to feel afraid or neglected: No Advance Directives: No Advance Directives Information Provided: No Advance Directives on File: No Do you have thoughts of harming others: None Do you have a plan to hurt others: No Plan Recently lost weight without trying: No How much weight loss: Not applicable Eating poorly because of decreased appetite: No Nutrition screen score: 0 Nutrition Risks: No Nutritional Risk Poor oral hygiene: No Meds Allergies Allergy/AdvReac Type Severity Reaction Status Date / Time No Known Allergies Allergy Verified 05/06/23 10:04 Home Medications Medication Instructions Recorded Confirmed Last Taken Type buprenorphine 12 mg-naloxone 3 mg 1 film sublingual DAILY 05/06/23 05/07/23 05/06/23 History sublingual film (Suboxone) clonidine HCl 0.3 mg tablet 0.3 mg PO BEDTIME 05/06/23 05/07/23 05/06/23 History cyanocobalamin (vitamin B-12) 1,000 mcg PO DAILY 05/06/23 05/07/23 05/06/23 History 1,000 mcg tablet (Vitamin B-12) dextroamphetamine-amphetamine 15 1 tab PO DAILY@1800 05/06/23 05/07/23 05/06/23 History mg tablet dextroamphetamine-amphetamine ER 1 cap PO BID@0800,1200 05/06/23 05/07/23 05/06/23 History 30 mg 24hr capsule,extend release doxepin 50 mg capsule 50 mg PO BEDTIME 05/06/23 05/07/23 05/06/23 History hydroxyzine pamoate 50 mg capsule 100 mg PO BEDTIME 05/06/23 05/07/23 05/06/23 History pantoprazole 40 mg tablet,delayed 40 mg PO DAILY@0630 05/06/23 05/07/23 05/06/23 History release buprenorphine 300 mg/1.5 mL 300 mg subcut QMONTH 05/07/23 05/07/23 Unknown History solution,exten.rel.subcutaneous syringe (Sublocade) gabapentin 300 mg capsule 600 mg PO TID 05/07/23 05/07/23 3 Days Ago History ~05/04/23 pregabalin 225 mg capsule 450 mg PO DAILY@1900 05/07/23 05/07/23 3 Days Ago History ~05/04/23 Physical Exam Vital Signs and Narrative: Vital Signs: Last Vital Signs Temp 98.7 F 05/07/23 13:42 Pulse 64 05/07/23 13:42 Resp 14 05/07/23 13:42 BP 128/83 05/07/23 13:42 Pulse Ox 98 05/07/23 13:42 O2 Del Method Room Air 05/07/23 13:42 BMI result Body Mass Index 29.8 Constitutional: Alert, in no acute distress. Mental Status: Oriented to person, place and time. Eyes: Pupils are equal, round, and reactive to light. Sclera icteric. Ear, Nose, and Throat: Oropharynx clear, mucous membranes moist. Ears and nose without deformities. Trachea midline. Respiratory: Clear to auscultation bilaterally. No wheezing, rales, or rhonchi. Cardiovascular: S1, S2 regular. No murmurs, rubs, or gallops. Gastrointestinal: Abdomen with epigastric and periumbilical tenderness. Abdomen soft, non-distended. Normal bowel sounds. Neurologic: Cranial nerves II-XII are grossly intact bilaterally. No focal neurological deficits. Moves all extremities spontaneously. Skin: No rashes or lesions noted. Musculoskeletal: No cyanosis or clubbing. Extremities: No edema. Psychiatric: Normal mood and affect. Results Labs 05/07/23 10:31 05/07/23 10:31 Labs: Laboratory Results - last 24 hr 05/07/23 05/07/23 05/07/23 10:31 10:31 10:31 MCV 85.2 MCH 29.3 MCHC 34.4 RDW 14.5 Plt Count 123 L MPV 12.1 Immature Gran % (Auto) 0.3 Neut % (Auto) 39.9 L Lymph % (Auto) 44.7 H [place] % (Auto) 12.3 H Eos % (Auto) 2.1 Baso % (Auto) 0.7 Lymph # (Auto) 3.9 [place] # (Auto) 1.1 Eos # (Auto) 0.2 Baso # (Auto) 0.1 Abs Immat Gran (auto) 0.03 Absolute Neuts (auto) 3.4 Absolute Nucleated RBC 0.000 Nucleated RBC % (auto) 0.0 Smear Tech's Comments VERIFIED PT 11.0 INR 1.0 APTT 31.6 Anion Gap 9 L Estim Creat Clear Calc 187.4 Estimated GFR > 60 Random Glucose 110 Calcium 8.7 D Total Bilirubin 8.1 H AST 287 H ALT 700 H Alkaline Phosphatase 442 H Total Protein 6.6 Albumin 3.1 L Lipase 21 Assessment and Plan (1) Elevated LFTs: Status: Acute Plan Pt is a 37-year-old male with a PMH significant for IVDU now on Suboxone last used 1 month ago, hepatitis C treated 10 years ago, and daily consumption?who presents to the ED with?nausea, vomiting, abdominal pain since last week. Patient states that his symptoms began on Thursday of last week with nausea and vomiting. He began developing abdominal pain on on Thursday and Thursday, eventually becoming unbearable by Thursday. Pt will be admitted to the hospital for further treatment further evaluation of symptomatic transaminitis. Abdominal pain, elevated LFTs Patient with nausea and vomiting since last Thursday, abdominal pain since Thursday Bilirubin 8.1, AST 287 AST 700, alk-phos 442 US found gallbladder wall thickening of 1.2 cm with possible tiny pericholecystic fluid, but no calcific cholelithiasis or biliary dilatation? US also found multiple hypoechoic foci of the liver potentially reflecting hemangiomas, patent hepatic portal vein Will check hep C viral load, HIV, serum copper Will get [place] MRCP tomorrow morning Will make NPO after midnight GI consult Analgesics for pain management Alcohol dependence Pt consumes 4-5 alcoholic drinks per day Denies history of withdrawal, denies morning tremors CIWA scale Hepatitis C Pt treated for hepatitis-C around 10 years ago Has been asymptomatic since Will check hep C viral load, treat as necessary IVDU Patient last used 1 month ago Continue Suboxone ADHD Continue home meds Anxiety Continue home meds Full Code Attending:?Dr. Huang DVT Prophylaxis: Lovenox Pt will require a hospitalization of at least two nights for treatment of?symptomatic transaminitis with additional testing and specialist consult. Time Spent With Patient Time: Total time managing care of this patient today ____ minutes. Quality Stroke Does the patient have a stroke diagnosis?: No VTE Prior VTE?: No VTE Risk Level:: Medical - moderate - high VTE Device Contraindication: Treatment Not Indicated VTE Drug Contraindication: N/A - Med Ordered
[2023-05-07] MEDS: Enoxaparin Sodium 40 MG/0.4 ML SYRINGE SUBCUT (14:28)
[2023-05-07] MEDS: Lactated Ringers 1,000 ML 100 ML IVCONT (14:28)
--- NOTE | 2023-05-07 14:35 | P.CNGI_ITS ---
History of Present Illness Data of Consult Service Date: 05/07/23 Requesting physician: Samira Salazar Primary Care Provider: Abi Conklin MD HPI Reason for consult: Elevated LFTs, bili 8.1, hx of hep c treated 10 years ago 37 YM with a hx of hepatitis-C (treated with Interferon+ Ribavarin x 6 months 10 years ago), IV drug abuse now on Suboxone last use 1 month ago, daily alcohol use seen at [facility] ED on 05/06/23 with fatigue, nausea, vomiting, upper abdominal pain for the last week.? Patient reported he woke up yesterday morning noticing that his eyes were yellow in appearance.? Pt denies past hx of elevated LFTs (states his LFTs were normal when he had Hep C in the past) He complains of 8/10 cramaping epigastric/RUQ pain which is constant and radiates to the back. Pt notes associated symptoms of bloating and gas and orange and hazy urine for the past week Pain improved to 5-6/10 today. Pt denies fever or diarrhea and notes some hot flashes. he has not been eating due to pain and nausea though denies worsneing of pain with eating. Pt admits to smoking 1PPD for the past several years. He drinks 5 to 7 drinks of hard liquor (Fireballs) and has been using heroin IV and smoking crack Pt thinks he may have shared needles a month ago and not completely sure. Patient denies heartburn or dysphagia. 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 He has 3 children. He denies known family history of liver disease, colon polyps or cancer. In the ED labs were significant for elevated LFTs and positive Hep C ab (Hep C viral load is pending) Prothrombin time was normal, albumin 2.4, normal lipase Repeat LFTs today showed improvement in transaminases and increase in TB from 6.3 to 8.1 Pt was admitted for further management 05/06/23 ABD US SHOWED: Gallbladder wall is thickened at 1.2 cm. Possible tiny pericholecystic fluid. No calcific cholelithiasis or biliary dilatation. ? Multiple hyperechoic foci of the liver potentially reflecting hemangiomas. MR liver correlation would be recommended when feasible Review of Systems Review of Systems: Nausea, vomiting Abdominal pain Jaundice Fatigue [place], cloudy urine Denies fever, chills, diarrhea Yes all other systems are reviewed and are negative [facility] Social History Social History Household Members: Significant Other Housing: House Do you presently have visiting nurse or other home services: No Alcohol intake: former Patient Tobacco Use Status: Current everyday Tobacco user Tobacco use type: Cigarette Second Hand Smoke Exposure: Yes Substance Use Type: IV Drugs service: No Meds Allergies Allergy/AdvReac Type Severity Reaction Status Date / Time No Known Allergies Allergy Verified 05/06/23 10:04 Active Medications: Current Medications Docusate Sodium (Docusate Sodium 100 Mg Capsule) 100 mg PO DAILY PRN PRN Reason: Constipation Enoxaparin Sodium (Enoxaparin Sodium 40 Mg/0.4 Ml Syringe) 40 mg SUBCUT Q24H [facility] Last Admin: 05/07/23 14:28 Dose: 40 mg Lactated Ringer's (Lr) 1,000 mls @ 100 mls/hr IVCONT .Q10H [facility] Last Admin: 05/07/23 14:28 Dose: 100 mls/hr Ondansetron HCl (Ondansetron Hcl 4 Mg/2 Ml Vial) 4 mg IVPUSH Q8H PRN PRN Reason: Nausea and Vomiting Pharmacy Consult (Consult Rx Perform Med Rec) 1 each MISCELLANE ONCE PRN PRN Reason: Consult order Sodium Chloride (0.9 % Sodium Chloride Flush 3 Ml Syringe) 3 ml IVFLUSH QSHIFT [facility] Last Admin: 05/07/23 14:29 Dose: Not Given Home Medications Medication Instructions Recorded Confirmed Last Taken Type buprenorphine 12 mg-naloxone 3 mg 1 film sublingual DAILY 05/06/23 05/07/23 05/06/23 History sublingual film (Suboxone) clonidine HCl 0.3 mg tablet 0.3 mg PO BEDTIME 05/06/23 05/07/23 05/06/23 History cyanocobalamin (vitamin B-12) 1,000 mcg PO DAILY 05/06/23 05/07/23 05/06/23 History 1,000 mcg tablet (Vitamin B-12) dextroamphetamine-amphetamine 15 1 tab PO DAILY@1800 05/06/23 05/07/23 05/06/23 History mg tablet dextroamphetamine-amphetamine ER 1 cap PO BID@0800,1200 05/06/23 05/07/2323 History 30 mg 24hr capsule,extend release doxepin 50 mg capsule 50 mg PO BEDTIME 05/06/23 05/07/23 05/06/23 History hydroxyzine pamoate 50 mg capsule 100 mg PO BEDTIME 05/06/23 05/07/23 05/06/23 History pantoprazole 40 mg tablet,delayed 40 mg PO DAILY@0630 05/06/23 05/07/23 05/06/23 History release buprenorphine 300 mg/1.5 mL 300 mg subcut QMONTH 05/07/23 05/07/23 Unknown Histo ry solution,exten.rel.subcutaneous syringe (Sublocade) gabapentin 300 mg capsule 600 mg PO TID 05/07/23 05/07/23 3 Days Ago History ~05/04/23 pregabalin 225 mg capsule 450 mg PO DAILY@1900 05/07/23 05/07/23 3 Days Ago History ~05/04/23 Physical Exam Vital Signs: Vital Signs: Last Vital Signs Temp 98.7 F 05/07/23 13:42 Pulse 64 05/07/23 13:42 Resp 14 05/07/23 13:42 BP 128/83 05/07/23 13:42 Pulse Ox 98 05/07/23 13:42 O2 Del Method Room Air 05/07/23 13:42 BMI result Body Mass Index 29.8 Const: General: no acute distress Nutritional Appearance: overweight Orientation/consciousness: patient oriented x3 Limitations: no limitations HEENT: Head: Yes normal to inspection Ears: hearing grossly normal bilaterally Mouth: Normal oral and palatal mucosa present Eyes: Sclerae: scleral abnormal (jaundice) Pupils: Equal, round and reactive pupils present Neck: Neck: Yes normal visual inspection Chest: Chest palpation & inspection: normal inspection of the chest Resp: Effort & Inspection: normal respiratory effort Auscultation: clear to auscultation bilaterally Cardio: Palpation: normal PMI Rate: regular rate Rhythm: regular rhythm Heart sounds: S1 normal heart sound present, S2 normal heart sound present and no murmurs GI: Palpation (GI): Soft to palpation, Tenderness to palpation present (GI) (Mild RUQ tenderness) and No hepatosplenomegaly present Auscultation: normal bowel sounds Rectal Exam - Male: Yes deferred Skin: General skin exam: no rashes or lesions noted and spider nevi (on anterior chest) Neuro: General: patient oriented x3, gait normal and moves all extremities Cranial nerves: Yes Equal, round and reactive pupils present Psych: Appearance: grossly normal Mental Status: mental status grossly normal Results Labs 05/07/23 10:31 05/07/23 10:31 Labs: Short CBC 05/07/23 Range/Units 10:31 WBC 8.6 (4.8-10.8) X10*3/uL Hgb 14.9 (14.0-18.0) g/dl Hct 43.3 (42.0-52.0) % Plt Count 123 L (160-400) X10*3/uL BMP 05/07/23 10:31 Sodium 139 Potassium 4.2 Chloride 107 Carbon Dioxide 27 BUN 7 L Creatinine 0.66 Calcium 8.7 D Liver Function 05/07/23 Range/Units 10:31 Total Bilirubin 8.1 H (0.0-1.0) mg/dL AST 287 H (5-37) U/L ALT 700 H (0-40) U/L Alkaline Phosphatase 442 H (39-117) U/L Albumin 3.1 L (3.5-5.0) g/dL Assessment and Plan (1) Elevated LFTs: Status: Acute Plan 37 YM with a hx of hepatitis-C (treated with Interferon+ Ribavarin x 6 months 10 years ago), IV drug abuse now on Suboxone last use 1 month ago, daily alcohol use admitted to [facility] with fatigue, nausea, vomiting, upper abdominal pain and Jaundice for the last week.? He drinks 5 to 7 drinks of hard liquor (Fireballs) and has been using heroin IV and smoking crack Pt thinks he may have shared needles a month ago and not completely sure. In the ED labs were significant for elevated LFTs and positive Hep C ab (Hep C viral load is pending) Prothrombin time was normal, albumin 2.4, normal lipase Repeat LFTs today showed improvement in transaminases and increase in TB from 6.3 to 8.1 Abd US showed Gallbladder wall is thickened at 1.2 cm. Possible tiny pericholecystic fluid. No calcific cholelithiasis or biliary dilatation. ?Multiple hyperechoic foci of the liver potentially reflecting hemangiomas. Elevated LFTs can be due to acute viral Hepatitis (CMV, EBV), recurrent acute Hepatitis C from IVDA or drug induced hepatitis (acetaminophen level was <17 on admission). Pattern of LFT elevation is not suggestive of ETOH related liver disease since ALT > AST. Otherless likely possibilities include Bebeto's disease, alpha-1 antitrypsin deficiency or autoimmune hepatitis Biliary obstruction is less likely since no CBD dilation seen on abd US. RECOMMENDATIONS: 1. MRI with MRCP to fu on hepatic hemangiomas seen on abd US 2. Follow LFTs and await results of Hep C viral load ADDENDUM: Hep C viral load indicative of a new Hep C infection. Pt advised to schedule a FU appt in the GI clinic for FU labs and to discuss treatment options Time Spent With Patient Time: Total time managing care of this patient today ____ minutes. Procedures Date of Service Date of Service: 05/14/23
[2023-05-07 14:43] VITALS: BP 137/84; PULSE 61; RESP 16; TEMP 36.8; O2SAT 96
--- NOTE | 2023-05-07 14:55 | PC.NURSE ---
Addendum entered by Ayla Dallas 05/07/23 14:57: pt able to eat/drink fluids now as HIDA scan tomorrow. NPO after midnight. Original Note: aware of NPO status- pt verbalizes understanding. calm, cooperative. no acute distress noted. iv fluids infusing- IV site CDI. aox4
--- NOTE | 2023-05-07 15:03 | PHA.MEDREC ---
Pharmacy Consult ? Medication Reconciliation Pharmacy has completed the medication reconciliation Spoke to patient to confirm meds. Patient states they take Sublocade 300mg monthly and is scheduled for next injection 05/12/23. Patient also states they haven't taken gabapentin and pregablin in a couple days because of their condition.
--- NOTE | 2023-05-07 15:13 | PC.NURSE ---
spoke w/kailee espinal asking re: pt question- pt states oxycodone does not work for him for pain control as he takes sublicaid/suboxone. also inquired to teddy re: ordering home suboxone per pt request. teddy in process of ordering meds. pt speaking w/o distress.
[2023-05-07] MEDS: Cyanocobalamin (Vitamin B-12) 1,000 MCG TABLET 1000 MCG PO (15:39)
[2023-05-07] MEDS: Buprenorphine/Naloxone 12/3 mg FILM 1 FILM SUBLINGUAL (15:39)
[2023-05-07] MEDS: Gabapentin 300 MG CAPSULE 600 MG PO ×2 (15:39→20:40)
--- NOTE | 2023-05-07 15:39 | PC.NURSE ---
called floor for report- referred to maria del carmen zuñiga rn- maria del carmen texted per unit request.
--- NOTE | 2023-05-07 15:44 | PC.NURSE ---
pt medicated per JAN, LR restarted at 100ml/hr, reporting 7/10 RUQ abd pain.
--- NOTE | 2023-05-07 15:56 | PC.NURSE ---
report given to floor to mao avelar. ate lunch. see MAR re: medications including suboxone.
[2023-05-07 16:00] VITALS: BP 135/81; PULSE 67; RESP 18; TEMP 36.6; O2SAT 93
[2023-05-07] MEDS: Amphetamine Mixed Salts 10 MG TABLET 15 MG PO (18:22)
[2023-05-07] MEDS: Doxepin HCl 25 MG CAPSULE 50 MG PO (20:40)
[2023-05-07] MEDS: cloNIDine HCL 0.1 MG TABLET 0.3 MG PO (20:40)
[2023-05-07] MEDS: hydrOXYzine HCL 50 MG TABLET 100 MG PO (20:41)
[2023-05-08] VITALS: BP 135/70; PULSE 65; RESP 18; TEMP 36.4; O2SAT 98
[2023-05-08] MEDS: Lactated Ringers 1,000 ML 100 ML IVCONT (01:10)
[2023-05-08 05:58] LABS: Hematocrit 41.7 % (42.0-52.0); Hemoglobin 14.6 g/dl (14.0-18.0); Mean Corpuscular Hemoglobin 29.7 pg (27.0-33.0); Mean Corpuscular Volume 84.9 fL (80.0-98.0); Mean Platelet Volume 11.8 fL (9.4-12.4); Platelet Count 145 X10*3/uL (160-400); Red Blood Count 4.91 X10*6/uL (4.60-5.80); Red Cell Distribution Width 14.7 % (11.0-16.0); White Blood Count 7.3 X10*3/uL (4.8-10.8)
[2023-05-08 06:12] LABS: Alanine Aminotransferase 464 U/L (0-40); Albumin Level 2.8 g/dL (3.5-5.0); Alkaline Phosphatase 402 U/L (39-117); Anion Gap 10 (12-20); Aspartate Amino Transferase 130 U/L (5-37); Bilirubin Total 5.7 mg/dL (0.0-1.0); Blood Urea Nitrogen 7 mg/dL (9-16); Calcium 8.8 mg/dL (8.4-10.2); Carbon Dioxide 25 mmol/L (22-29); Chloride 106 mmol/L (96-108); Creatinine Clr Calc Pharmacy 196.3; Estimated Glomerular Filt Rate > 60; Glucose Random 117 mg/dL (60-115); Potassium 3.9 mmol/L (3.3-5.1); Sodium 137 mmol/L (135-145); Total Protein 6.1 g/dL (6.5-8.0)
[2023-05-08 07:29] VITALS: BP 140/100; PULSE 56; RESP 18; TEMP 36.3; O2SAT 96
[2023-05-08] MEDS: Dextroamphetamine/Amphetamine XR 10 MG CAP.ER.24H 30 MG PO ×2 (08:45→11:40)
[2023-05-08] MEDS: Cyanocobalamin (Vitamin B-12) 1,000 MCG TABLET 1000 MCG PO (08:45)
[2023-05-08] MEDS: Gabapentin 300 MG CAPSULE 600 MG PO (08:45)
[2023-05-08] MEDS: Buprenorphine/Naloxone 12/3 mg FILM 1 FILM SUBLINGUAL (08:46)
[2023-05-08] MEDS: Omeprazole 20 MG CAPSULE.DR PO (08:46)
[2023-05-08 11:30] VITALS: BP 140/92; PULSE 81; RESP 18; TEMP 36.3; O2SAT 96
[2023-05-08] MEDS: Ibuprofen 600 MG TABLET PO (11:40)
--- NOTE | 2023-05-08 12:31 | P.DS_ITS ---
DS: Providers Provider Date of Service: 05/08/23 Date of admission: 05/07/23 14:05 Date of discharge: 05/08/23 Primary care physician: Abi Conklin MD Consults: 05/07/23 14:19 Consult to Gastroenterology Routine Consulting Provider: Arely Donaldson Reason for consultation: Elevated LFTs, bili 8.1, hx of hep c treated 10 years ago DS: Diagnosis Discharge Diagnosis (1) Elevated LFTs: Status: Acute DS: Summary Hospital Course Hospital Course: 7-year-old male with a PMH significant for IVDU now on Suboxone last used 1 month ago, hepatitis C treated 10 years ago, and daily consumption?who presents to the ED with?nausea, vomiting, abdominal pain since last week.? Patient states that his symptoms began on Thursday of last week with nausea and vomiting.? He began developing abdominal pain on on Thursday and Thursday, eventually becoming unbearable by Thursday.? Patient describes pain as crampy in nature and rates it an 8 of 10 at its worst, primary located in his upper abdomen.? Patient has been feeling bloated and gassy during this time.? Noticed his eyes were yellow sometime over the weekend, and reports orange and hazy urine for the past week.? Patient states that he was treated for hepatitis-C around 10 years ago and has had no issues since then.? Patient also has a history of IV drug use with heroin and cocaine, primarily injected in the upper extremities.? Currently on Suboxone and last used 1 month ago.? Patient also admits to drinking 4-5 drinks daily.? Denies a history of withdrawal.? 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 Of note, patient was set to be admitted to the hospitalist service yesterday, but patient was not ?ready? to be admitted and left to the ED a.m. a to then come back again today. In the ED labs on 05/07/2023 were significant for platelets of 123, bilirubin 8.1, AST 287, ALT 700, alk-phos 442, albumin 3.1.? Renal function baseline.? UA was hazy and orange in color, likely negative for UTI.? Toxicology positive for fentanyl, marijuana, and amphetamines.? Ethyl alcohol on 05/06 22 negative, negative for acetaminophen. Abdominal ultrasound found gallbladder wall thickening of 1.2 cm with possible tiny pericholecystic fluid, but no calcific cholelithiasis or biliary dilatation.? Also found multiple hypoechoic foci of the liver potentially reflecting hemangiomas, suggest MRI of liver correlation.? Hepatic portal vein was found to be patent. Pt will be admitted to the hospital for further treatment further evaluation of symptomatic transaminitis. Hospital Course Admitted to general medical floor. On 05/08/2023 patient underwent MRCP which demonstrated enlarged liver normal caliber intra and extrahepatic bile ducts no common duct stone seen.: Gallbladder wall upper normal thickness. No gallstones. Patient tolerated full diet as asking for discharge. Seen in consultation by GI yesterday. Reviewed today's findings with GI and patient exam. GI agrees he is medically acceptable for discharge to home and can follow up with PCP in 1 week. He will need follow-up LFTs; hep C viral load pending Time Spent with Patient Time attestation: Total time managing care of this patient today ____ minutes. Discharge coordination time: Greater than 30 minutes Quality: Safe Use of Opioids Does Pt have an Active Cancer Diagnosis on the Problem List?: No Quality: Stroke Does the patient have a stroke diagnosis?: No Physical Exam Vital Signs: Vital Signs: Last Vital Signs Temp 97.3 F 05/08/23 11:30 Pulse 81 05/08/23 11:30 Resp 18 05/08/23 11:30 BP 140/92 H 05/08/23 11:30 Pulse Ox 96 05/08/23 11:30 O2 Del Method Room Air 05/08/23 11:30 BMI result Body Mass Index 29.8 Const: Other: Awake alert no acute distress. Pain-free after eating Resp: Other: Clear to auscultation bilaterally no rales rhonchi or wheezes Cardio: Other: No S4; positive S1-S2; no S3 murmurs rubs or gallops GI: Other: Soft nontender nondistended normoactive bowel sounds Extrem: Other: No edema bilaterally DS: Data Data Completed and Pending Labs on day of discharge: Laboratory Results - last 24 hr 05/08/23 05/08/23 05:45 05:45 WBC 7.3 RBC 4.91 Hgb 14.6 Hct 41.7 L MCV 84.9 MCH 29.7 MCHC 35.0 RDW 14.7 Plt Count 145 L MPV 11.8 Absolute Nucleated RBC 0.000 Nucleated RBC % (auto) 0.0 Sodium 137 Potassium 3.9 Chloride 106 Carbon Dioxide 25 Anion Gap 10 L BUN 7 L Creatinine 0.63 Estim Creat Clear Calc 196.3 Estimated GFR > 60 Random Glucose 117 H Calcium 8.8 Total Bilirubin 5.7 H AST 130 H ALT 464 H Alkaline Phosphatase 402 H Total Protein 6.1 L Albumin 2.8 L Discharge Plan Discharge Anticipated Discharge Date/Time: 05/08/23 12:28 Patient Disposition: Home, Self-Care Discharge Diagnosis: Elevated LFTs Referrals: Abi Conklin MD [Primary Care Provider] - 1 Week Discharge Medications: Continued doxepin 50 mg capsule 50 mg PO BEDTIME clonidine HCl 0.3 mg tablet 0.3 mg PO BEDTIME cyanocobalamin (vitamin B-12) [Vitamin B-12] 1,000 mcg tablet 1,000 mcg PO DAILY hydroxyzine pamoate 50 mg capsule 100 mg PO BEDTIME pantoprazole 40 mg tablet,delayed release (DR/EC) 40 mg PO DAILY@0630 dextroamphetamine-amphetamine 15 mg tablet 1 tab PO DAILY@1800 dextroamphetamine-amphetamine 30 mg capsule,extended release 24hr 1 cap PO BID@0800,1200 buprenorphine-naloxone [Suboxone] 12-3 mg film 1 film sublingual DAILY gabapentin 300 mg capsule 600 mg PO TID pregabalin 225 mg capsule 450 mg PO DAILY@1900 Sublocade 300 mg/1.5 mL Solution, Extended Rel Syringe 300 mg SUBCUT QMONTH Rx Instructions: PT STATES DUE NEXT (05/12/23) Discharge Orders: Discharge Order (Routine); Ordered 05/08/23 Ordered By: Prasad Huang Diet: Advance to usual diet Activity on Discharge: As tolerated Stand Alone Forms: Patient Portal Discharge page Care Plan Goals: Resume all medicines as taken prior to hospital Health Concerns: Follow-up with your PCP in 1 week. You will need repeat lab work and your PCP can follow-up from thereafter Plan of Treatment: Avoid alcohol Assessment: See discharge summary
--- NOTE | 2023-05-08 12:42 | MHC.CM.PN ---
PT REPORTS HE LIVES WITH HIS S/O, MINH HE IS INDEPENDENT WITH CARE PT HAS NO DME AND NO SERVICES PT COMPLETED A HCP TODAY, NAMING HIS S/O HIS AGENT PCP: TYSON ENRIQUEZ IMM DELIVERED PT WILL DC HOME TODAY WITH NO SERVICES S/O TO TRANSPORT
== END 2023-05-08 13:05 | disposition home or self-care (01) | DRG 948 ==
LOC: HO.ED 10:14 → HO.EDOVER 14:36 → HO.S3 15:01
PROVIDERS: Physician Assistant; Admitting Provider Student in an Organized Health Care Education/Training Program; Emergency Provider Student in an Organized Health Care Education/Training Program; PCP Internal Medicine; Visit Provider Hospitalist
DX: R74.01 Elevation of levels of liver transaminase levels (principal); F11.20 Opioid dependence, uncomplicated; F17.210 Nicotine dependence, cigarettes, uncomplicated; Z71.6 Tobacco abuse counseling; F90.9 Attention-deficit hyperactivity disorder, unspecified type; F10.20 Alcohol dependence, uncomplicated; F41.9 Anxiety disorder, unspecified; Z86.19 Personal history of other infectious and parasitic diseases; Z79.899 Other long term (current) drug therapy
CPT/HCPCS: 36415; 74181; 76705; 80048; 80053; 80076; 80143; 80307; 81001; 83690; 83735; 85025; 85027; 85610; 85730; 86704; 86706; 86709; 86803; 87340; 87522; 96361; 96374; 96375; 99285; J1650; J2270; J2405

== ENCOUNTER 2023-06-23 22:36 | Emergency (ER) | payer OTHER, SELFPAY ==
--- NOTE | 2023-06-23 | ECG_ITS ---
Test Reason : TACHYCARDIA Blood Pressure : / mmHG Vent. Rate : 103 BPM Atrial Rate : 103 BPM P-R Int : 130 ms QRS Dur : 082 ms QT Int : 328 ms P-R-T Axes : 058 024 035 degrees QTc Int : 429 ms Sinus tachycardia Possible Left atrial enlargement Borderline ECG No previous ECGs available Referred By: Generic ED Physician Electronically Signed By:Alex Tompkins
[2023-06-23 22:38] VITALS: BP 174/102; PULSE 126; RESP 18; TEMP 37.4; O2SAT 95; BMI 31.2
[2023-06-23 23:05] LABS: MANUAL DIFF FLAG NO
[2023-06-23 23:06] LABS: Basophils Percent Auto 0.3 % (0-2); Eosinophils Absolute Auto 0.1 X10*3/uL (0.0-0.4); Eosinophils Percent Auto 0.4 % (0-4); Hematocrit 41.6 % (42.0-52.0); Hemoglobin 13.9 g/dl (14.0-18.0); Imm Gran Abs Auto 0.05 X10*3/uL (0.00-0.03); Imm Gran Pct Auto 0.4 % (0.0-0.4); Lymphocytes Absolute Auto 1.7 X10*3/uL (1.2-4.9); Lymphocytes Percent Auto 14.5 % (20-40); Mean Corpuscular HGB Conc 33.4 g/dl (31.0-36.0); Mean Corpuscular Volume 89.7 fL (80.0-98.0); Mean Platelet Volume 9.6 fL (9.4-12.4); Monocytes Absolute Auto 1.2 X10*3/uL (0.1-1.2); Monocytes Percent Auto 10.4 % (2-11); Neutrophils Absolute Auto 8.6 x10*3/uL (2.0-8.3); Platelet Count 230 X10*3/uL (160-400); Red Blood Count 4.64 X10*6/uL (4.60-5.80); Red Cell Distribution Width 14.5 % (11.0-16.0); White Blood Count 11.6 X10*3/uL (4.8-10.8)
[2023-06-23 23:22] LABS: Alanine Aminotransferase 24 U/L (0-40); Albumin Level 4.2 g/dL (3.5-5.0); Alkaline Phosphatase 91 U/L (39-117); Anion Gap 14 (12-20); Aspartate Amino Transferase 23 U/L (5-37); Bilirubin Direct 0.4 mg/dL (0.0-0.5); Bilirubin Total 0.9 mg/dL (0.0-1.0); Blood Urea Nitrogen 14 mg/dL (9-16); Calcium 9.5 mg/dL (8.4-10.2); Carbon Dioxide 23 mmol/L (22-29); Chloride 103 mmol/L (96-108); Creatinine Clr Calc Pharmacy 137.4; Estimated Glomerular Filt Rate > 60; Glucose Random 106 mg/dL (60-115); Lipase 8 U/L (8-78); Potassium 4.1 mmol/L (3.3-5.1); Sodium 136 mmol/L (135-145); Total Protein 8.2 g/dL (6.5-8.0)
== END 2023-06-24 01:44 | disposition left against medical advice (07) ==
PROVIDERS: Emergency Provider Emergency Medicine
DX: R60.0 Localized edema (principal); R00.0 Tachycardia, unspecified; Z79.899 Other long term (current) drug therapy
CPT/HCPCS: 36415; 80048; 80076; 83690; 85025; 93005; 99283

== ENCOUNTER → 2023-06-23 22:51 | Outpatient (BNV) | payer OTHER, MEDICAID, SELFPAY | PROVIDERS: Emergency Provider Emergency Medicine; Visit Provider Internal Medicine Cardiovascular Disease | DX: R00.0 Tachycardia, unspecified (principal) | CPT/HCPCS: 93010 ==

== ENCOUNTER 2023-06-24 13:49 | Inpatient (IN) | payer OTHER, SELFPAY ==
--- NOTE | ~2023-06-24 | US_ITS ---
EXAMINATION: US extremity nonvascular CLINICAL INFORMATION: Reason for Exam pain, swelling COMPARISON: None. TECHNIQUE: Targeted ultrasound of the right torrez corresponding to the area of the wound. FINDINGS: Nonspecific soft tissue edema pattern is present at the site of the wound as was pointed out by the patient at the time of the examination. No definite sonographic evidence of focal fluid collection to suspect abscess formation. US/US extremity nonvascular IMPRESSION: Nonspecific soft tissue edema without any sonographic evidence of focal fluid collection and/or abscess at the site of the wound localized to the right leg.
--- NOTE | ~2023-06-24 | US_ITS ---
EXAMINATION: US VENOUS ULTRASOUND WITH DOPPLER LOWER EXTREMITY, RIGHT CLINICAL INFORMATION: Right lower extremity redness and swelling. COMPARISON: None available. TECHNIQUE: Ultrasound of the deep veins is performed from the hip to the calf with compression sonography and color and pulse Doppler assessment. Spectral analysis with color-flow imaging is performed. FINDINGS: There is normal venous compression and respiratory variation and augmented flow. The visualized common femoral vein, superficial femoral vein, profunda femoral vein, popliteal vein, and the trifurcation region shows no evidence of deep venous thrombosis. No right popliteal cyst. A right inguinal lymph node measures 2.9 cm in long axis. Color Doppler showed no abnormal vascular flow. The surrounding soft tissues are unremarkable. US/US venous duplex LE RT IMPRESSION: 1. No evidence for deep venous thrombosis in the visualized veins of the right lower extremity. 2. Mildly enlarged right inguinal lymph node is nonspecific, but demonstrates benign features and may be reactive. Correlate with physical exam. If these findings persist or enlarge, short-term repeat targeted soft tissue ultrasound can be performed as clinically indicated to assess for change.
--- NOTE | 2023-06-24 14:10 | ED_ITS ---
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 He reports he kneels down frequently while working in He states that he believes he got a piece of wood into his right lower leg just below his knee He noticed redness and ?a small pimple on Thursday, 5 days ago He tried to pop it and expressed a little bit of purulent material Patient reports since then he has had increasing redness and swelling extending all way down his leg toward his foot He denies any fevers or chills Patient denies injecting into the right lower extremity No other complaints or concerns at this time Related Data Home Medications Medication Instructions Recorded Confirmed buprenorphine 12 mg-naloxone 3 mg 1 film sublingual DAILY 05/06/23 05/07/23 sublingual film (Suboxone) clonidine HCl 0.3 mg tablet 0.3 mg PO BEDTIME 05/06/23 05/07/23 cyanocobalamin (vitamin B-12) 1,000 mcg PO DAILY 05/06/23 05/07/23 1,000 mcg tablet (Vitamin B-12) dextroamphetamine-amphetamine 15 1 tab PO DAILY@1800 05/06/23 05/07/23 mg tablet dextroamphetamine-amphetamine ER 1 cap PO BID@0800,1200 05/06/23 05/07/23 30 mg 24hr capsule,extend release doxepin 50 mg capsule 50 mg PO BEDTIME 05/06/23 05/07/23 hydroxyzine pamoate 50 mg capsule 100 mg PO BEDTIME 05/06/23 05/07/23 pantoprazole 40 mg tablet,delayed 40 mg PO DAILY@0630 05/06/23 05/07/23 release buprenorphine 300 mg/1.5 mL 300 mg subcut QMONTH 05/07/23 05/07/23 solution,exten.rel.subcutaneous syringe (Sublocade) gabapentin 300 mg capsule 600 mg PO TID 05/07/23 05/07/23 pregabalin 225 mg capsule 450 mg PO DAILY@1900 05/07/23 05/07/23 Allergies Allergy/AdvReac Type Severity Reaction Status Date / Time No Known Allergies Allergy Verified 06/24/23 14:11 Review of Systems Constitutional: Constitutional: Denies chills and Denies fever(s) Cardiovascular: Cardiovascular: Denies chest pain and Denies dyspnea Respiratory: Respiratory: Denies dyspnea Musculoskeletal: Comments: Right leg pain Integumentary/Breasts: Skin/Breast: Reports erythema and Reports wounds PMFSH Social History Social History Household Members: Significant Other Housing: House Do you presently have visiting nurse or other home services: No Alcohol intake: former Patient Tobacco Use Status: Current everyday Tobacco user Tobacco use type: Cigarette Second Hand Smoke Exposure: Yes Substance Use Type: IV Drugs Advance Directives: Yes Advance Directives on File: Yes Advance Directives Date on File: 05/11/23 service: No Physical Exam Vital Signs: Vital Signs: Last Vital Signs Temp 99.1 F 06/24/23 16:53 Pulse 76 06/24/23 16:53 Resp 18 06/24/23 16:53 BP 158/89 H 06/24/23 16:53 Pulse Ox 99 06/24/23 16:53 O2 Del Method Room Air 06/24/23 16:53 BMI result Body Mass Index 31.9 Const: General: healthy appearing, comfortable, no acute distress, alert and awake Nutritional Appearance: well nourished Orientation/consciousness: patient oriented x3 HEENT: Head: Yes normocephalic and Yes atraumatic Eyes: Eyelids: Yes eyelids normal Conjunctivae: conjunctivae normal Sclerae: sclerae normal Corneas: corneas normal Pupils: Equal, round and reactive pupils present EOM: EOMs intact bilaterally Neck: Neck: Yes full ROM Resp: Effort & Inspection: normal respiratory effort, able to speak in co mplete sentences and not labored Skin: Other: Patient has an area of induration fluctuance to the right anterior lower leg just below the knee. There is erythema extending proximally approximately 10 cm and distally down towards the top of the right foot. General skin exam: elasticity normal Neuro: General: patient oriented x3 Cranial nerves: Yes Equal, round and reactive pupils present and Yes Bilaterally intact EOM present Cognition (Neuro): normal cognition Course Course Course Narrative: RME - 38 y/o male with history of IVDA who presents to the ER for evaluation of RLE infection that started 5 days ago after kneeling of a dirty steps at work. Spontanously draining brown fluid. RLE is erythematous, tender and swollen with an abscess to the anterior proximal torrez. VSS in triage. no fever or tachycardia. Plan: labs and U/S r/o DVT, abx Reevaluation(s) Reevaluation #1: Ultrasound negative for discrete drainable abscess. Discussed with the hospitalist who will admit the patient Time: 20:35 Medications Administered Discontinued Medications Generic Name Dose Route Start Last Admin Trade Name Freq PRN Reason Stop Dose Admin Sodium Chloride 1,000 mls @ 999 mls/hr 06/24/23 17:30 06/24/23 17:42 Ns IV 06/24/23 18:30 999 mls/hr .Q1H1M BC Administration Vancomycin HCl 2,000 mg in 500 mls @ 250 mls/hr 06/24/23 17:22 06/24/23 17:46 Vancomycin/Ns IV 06/24/23 19:21 250 mls/hr ONCE ONE Administration Morphine Sulfate 4 mg 06/24/23 17:21 06/24/23 17:43 Morphine Sulfate 4 Mg/Ml Cartridge IVPUSH 06/24/23 17:22 4 mg ONCE ONE Administration Protocol Ondansetron HCl 4 mg 06/24/23 17:21 06/24/23 17:42 Ondansetron Hcl 4 Mg/2 Ml Vial IVPUSH 06/24/23 17:22 4 mg ONCE ONE Administration Medical Decision Making Medical Decision Making [facility] Narrative: 38-year-old male presents for evaluation of cellulitis/abscess. He has a white count of 13.4k. A lactic acid is pending. His vital signs are stable. An ultrasound was ordered to rule out DVT. Given the extensive cellulitis I will order an ultrasound to evaluate for degree of abscess that would be amenable to incision and drainage. Patient achieved with vancomycin. There is no evidence of sepsis at this time Differential Diagnosis Differential Diagnoses: The differential diagnosis associated with the presentation includes Cellulitis Abscess Sepsis Bacteremia IV drug abuse Opioid dependence Admission/Observation Consideration of admission/observation: Escalation of care including admission/observation considered Extensive cellulitis with or without abscess Consult Healthcare Provider Management of the patient was discussed with: Hospitalist Discussed with hospitalist for admission Lab Data [facility] Lab Attestation statement: I reviewed the patient's lab results. Leukocytosis of 13.4 with a left shift, no significant anemia. Platelet count within normal range. Patient's electrolytes are within normal limits. Renal function within normal limits. Glucose of 117 06/24/23 14:33 06/24/23 14:33 Labs: Lab Results 06/24/23 06/24/23 06/24/23 Range/Units 14:33 14:33 17:35 WBC 13.4 H (4.8-10.8) X10*3/uL RBC 4.69 (4.60-5.80) X10*6/uL Hgb 14.2 (14.0-18.0) g/dl Hct 42.7 (42.0-52.0) % MCV 91.0 (80.0-98.0) fL MCH 30.3 (27.0-33.0) pg MCHC 33.3 (31.0-36.0) g/dl RDW 14.5 (11.0-16.0) % Plt Count 233 (160-400) X10*3/uL MPV 9.8 (9.4-12.4) fL Immature Gran % (Auto) 0.4 (0.0-0.4) % Neut % (Auto) 74.3 H (45-73) % Lymph % (Auto) 14.5 L (20-40) % [place] % (Auto) 10.2 (2-11) % Eos % (Auto) 0.2 (0-4) % Baso % (Auto) 0.4 (0-2) % Lymph # (Auto) 1.9 (1.2-4.9) X10*3/uL [place] # (Auto) 1.4 H (0.1-1.2) X10*3/uL Eos # (Auto) 0.0 (0.0-0.4) X10*3/uL Baso # (Auto) 0.1 (0.0-0.2) X10*3/uL Abs Immat Gran (auto) 0.06 H (0.00-0.03) X10*3/uL Absolute Neuts (auto) 9.9 H (2.0-8.3) x10*3/uL Absolute Nucleated RBC 0.000 (0.0-0.012) X10*3/uL Nucleated RBC % (auto) 0.0 (0.0-0.2) /100WBC Sodium 137 (135-145) mmol/L Potassium 3.8 (3.3-5.1) mmol/L Chloride 102 (96-108) mmol/L Carbon Dioxide 26 (22-29) mmol/L Anion Gap 13 (12-20) BUN 14 (9-16) mg/dL Creatinine 1.00 (0.5-1.4) mg/dL Estim Creat Clear Calc 126.3 Estimated GFR > 60 Random Glucose 117 H (60-115) mg/dL Lactic Acid 1.0 (0.5-2.0) mmol/L Calcium 10.0 (8.4-10.2) mg/dL Magnesium 2.4 (1.6-2.6) mg/dL Total Bilirubin 1.2 H (0.0-1.0) mg/dL Direct Bilirubin 0.6 H (0.0-0.5) mg/dL AST 37 (5-37) U/L ALT 28 (0-40) U/L Alkaline Phosphatase 100 (39-117) U/L Total Creatine Kinase 956 H (38-174) U/L Total Protein 8.6 H (6.5-8.0) g/dL Albumin 4.2 (3.5-5.0) g/dL Independent Interpretation I performed an independent interpretation of an: Ultrasound Interpretation: Ultrasound sound shows no evidence of abscess Discharge Plan Discharge Clinical Impression: Cellulitis of leg, right Patient Disposition: Admitted As Inpatient Prescriptions: No Action doxepin 50 mg capsule 50 mg PO BEDTIME clonidine HCl 0.3 mg tablet 0.3 mg PO BEDTIME cyanocobalamin (vitamin B-12) [Vitamin B-12] 1,000 mcg tablet 1,000 mcg PO DAILY hydroxyzine pamoate 50 mg capsule 100 mg PO BEDTIME pantoprazole 40 mg tablet,delayed release (DR/EC) 40 mg PO DAILY@0630 dextroamphetamine-amphetamine 15 mg tablet 1 tab PO DAILY@1800 dextroamphetamine-amphetamine 30 mg capsule,extended release 24hr 1 cap PO BID@0800,1200 buprenorphine-naloxone [Suboxone] 12-3 mg film 1 film sublingual DAILY gabapentin 300 mg capsule 600 mg PO TID pregabalin 225 mg capsule 450 mg PO DAILY@1900 Sublocade 300 mg/1.5 mL Solution, Extended Rel Syringe 300 mg SUBCUT QMONTH Rx Instructions: PT STATES DUE NEXT (05/12/23)
[2023-06-24 14:12] VITALS: BP 148/88; PULSE 96; RESP 18; TEMP 36.9; O2SAT 98; BMI 31.9
[2023-06-24 14:39] LABS: MANUAL DIFF FLAG NO
[2023-06-24 14:40] LABS: Basophils Absolute Auto 0.1 X10*3/uL (0.0-0.2); Basophils Percent Auto 0.4 % (0-2); Eosinophils Percent Auto 0.2 % (0-4); Hematocrit 42.7 % (42.0-52.0); Hemoglobin 14.2 g/dl (14.0-18.0); Imm Gran Abs Auto 0.06 X10*3/uL (0.00-0.03); Imm Gran Pct Auto 0.4 % (0.0-0.4); Lymphocytes Absolute Auto 1.9 X10*3/uL (1.2-4.9); Lymphocytes Percent Auto 14.5 % (20-40); Mean Corpuscular HGB Conc 33.3 g/dl (31.0-36.0); Mean Corpuscular Hemoglobin 30.3 pg (27.0-33.0); Mean Platelet Volume 9.8 fL (9.4-12.4); Monocytes Absolute Auto 1.4 X10*3/uL (0.1-1.2); Monocytes Percent Auto 10.2 % (2-11); Neutrophils Absolute Auto 9.9 x10*3/uL (2.0-8.3); Neutrophils Percent Auto 74.3 % (45-73); Platelet Count 233 X10*3/uL (160-400); Red Blood Count 4.69 X10*6/uL (4.60-5.80); Red Cell Distribution Width 14.5 % (11.0-16.0); White Blood Count 13.4 X10*3/uL (4.8-10.8)
[2023-06-24 15:00] LABS: Alanine Aminotransferase 28 U/L (0-40); Anion Gap 13 (12-20); Aspartate Amino Transferase 37 U/L (5-37); Bilirubin Direct 0.6 mg/dL (0.0-0.5); Bilirubin Total 1.2 mg/dL (0.0-1.0); Blood Urea Nitrogen 14 mg/dL (9-16); Carbon Dioxide 26 mmol/L (22-29); Chloride 102 mmol/L (96-108); Creatinine Clr Calc Pharmacy 126.3; Estimated Glomerular Filt Rate > 60; Glucose Random 117 mg/dL (60-115); Magnesium 2.4 mg/dL (1.6-2.6); Potassium 3.8 mmol/L (3.3-5.1); Sodium 137 mmol/L (135-145)
[2023-06-24 15:01] LABS: Albumin Level 4.2 g/dL (3.5-5.0); Alkaline Phosphatase 100 U/L (39-117); Total Protein 8.6 g/dL (6.5-8.0)
[2023-06-24 16:53] VITALS: BP 158/89; PULSE 76; RESP 18; TEMP 37.3; O2SAT 99
[2023-06-24] MEDS: ondansetron HCL 4 MG/2 ML VIAL IVPUSH (17:42)
[2023-06-24] MEDS: 0.9 % Sodium Chloride 1,000 ML 999 ML IV (17:42)
[2023-06-24] MEDS: Morphine Sulfate 4 MG/ML CARTRIDGE IVPUSH ×2 (17:43→23:57)
[2023-06-24] MEDS: vancomycin/NS 2,000 MG/500 ML PLAST..BAG 250 MG IV (17:46)
--- NOTE | 2023-06-24 18:15 | PC.NURSE ---
redness and swelling noted to right lower extremity, cleaned with normal saline per pt request. iv established, labs drawn and sent. antibiotics infusing
--- NOTE | 2023-06-24 20:54 | PHA.MEDREC ---
Pharmacy Consult ? Medication Reconciliation Pharmacy has completed the medication reconciliation. Patient was half alsee answer questions. Tried to keep patient awake and respnosive. Reported her takes Suboxone 8 mg, 2 films at night. Patient reported he takes gabapentin in the morning and afternoon then takes pregabalin. Patient did not report dose of gabapentin but prescripition is for 2 tablets each dose. Patient stated he takes pregablin 225 mg at night time (however the most recent filled is for 1-2 tablet of pregablin 150 mg but I left it as the 225 as patient reported.) Varsha Do, PharmD
[2023-06-24 20:57] VITALS: BP 143/78; PULSE 82; RESP 18; TEMP 37.6; O2SAT 98
--- NOTE | 2023-06-24 21:30 | PC.NURSE ---
This senior writer assumed care of pt at 1900. Pt appears to be sleeping at this time, easily awaken with tactile stimulus. Pt reports no pain, redness and swelling noted to right leg, from below the knee, radiating down to lower torrez, tender to touch, warmth felt all through outline of leg. Positive pedal pulse on right foot, outline noted on right torrez. Pt given sandwich and drink, resting quietly. wctm
--- NOTE | 2023-06-24 21:41 | P.HPHOSP_ITS ---
I agree with Lee note, assessment and plan Patient will be admitted for acute cellulitis will be treated with IV antibiotics For full H&P please see below History of Present Illness Date of Service: 06/24/23 Attending physician on admission: Jelani Colin Chief Complaint: Right leg reddness Pt is a 38-year-old male with a PMH significant for IVDU currently using, hepatitis C treated 10 years ago with recent recurrence, and daily alcohol consumption?who presents to the ED?with lower right leg pain, swelling, redness for the past week. 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 Last week patient was kneeling on the stairs washing carpet when he got a piece of wood in his leg. This past Thursday morning he noticed he had a ?pimple? that popped and drained. The following day the pimple returned but was bigger. It popped again and drained purulent discharge. Patient reports that wound has been draining a purulent discharge daily since then. Swelling, redness, pain have continue to increase to the point where pt can now barely walk or bend his knee secondary to pain. Patient denies fever, chills, nausea, vomiting. Patient with polysubstance use disorder has been currently using both IV heroin and alcohol daily. Patient had 10-15 bags of heroin and 3-5 naps this morning. Patient was recently admitted to the hospital for elevated LFTs on 05/07/2023 and found to have a hepatitis C viral load of over 3000. He was unable to make a his appointment at the outpatient clinic for follow-up. Patient denies chest pain/pressure, palpitations. No shortness of breath. Denies abdominal pain. In the ED patient was afebrile but tachycardic up to 126 and hypertensive up to 174/102. Labs were significant for a leukocytosis of 13.4, creatinine kinase 956. H&H stable. Electrolytes WNL. Renal function at baseline. Hepatic funct ion WNL. Ultrasound of lower right extremity found no evidence for DVT but did show nonspecific mildly enlarged right inguinal lymph node. Right lower leg ultrasound found nonspecific soft tissue edema without any sonographic evidence of focal fluid collection and/or abscess at site of the wound. Pt was treated with vanco, ondansetron, morphine, and IVF. Pt will be admitted to the hospital for treatment further evaluation of right lower leg cellulitis. Review of Systems Review of Systems: Wound to lower right leg with purulent discharge Erythema, swelling of lower right extremity Right knee and leg pain, exacerbated by walking Denies fever, chills, nausea, vomiting No chest pain/pressure, palpitations Denies shortness of breath Abdominal pain Yes all other systems are reviewed and are negative PMFSH Social History Household Members: Significant Other Housing: House Do you presently have visiting nurse or other home services: No Alcohol intake: former Patient Tobacco Use Status: Current everyday Tobacco user Tobacco use type: Cigarette Second Hand Smoke Exposure: Yes Substance Use Type: IV Drugs Advance Directives: Yes Advance Directives on File: Yes Advance Directives Date on File: 05/11/23 service: No Meds Allergies Allergy/AdvReac Type Severity Reaction Status Date / Time No Known Allergies Allergy Verified 06/24/23 14:11 Home Medications Medication Instructions Recorded Confirmed Last Taken Type clonidine HCl 0.3 mg tablet 0.3 mg PO BEDTIME 05/06/23 06/24/23 05/06/23 History dextroamphetamine-amphetamine 15 1 tab PO DAILY@1800 05/06/23 06/24/23 05/06/23 History mg tablet dextroamphetamine-amphetamine ER 1 cap PO BID@0800,1200 05/06/23 06/24/23 05/06/23 History 30 mg 24hr capsule,extend release doxepin 50 mg capsule 50 mg PO BEDTIME 05/06/23 06/24/23 05/06/23 History hydroxyzine pamoate 50 mg capsule 100 mg PO BEDTIME 05/06/23 06/24/23 05/06/23 History pantoprazole 40 mg tablet,delayed 40 mg PO DAILY@0630 05/06/23 06/24/23 05/06/23 History release gabapentin 300 mg capsule 600 mg PO BID@0900,1200 05/07/23 06/24/23 3 Days Ago History ~05/04/23 pregabalin 225 mg capsule 225 mg PO BEDTIME 05/07/23 06/24/23 3 Days Ago History ~05/04/23 buprenorphine 8 mg-naloxone 2 mg 2 film sublingual BEDTIME 06/24/23 06/24/23 Unknown History sublingual film (Suboxone) Physical Exam Vital Signs and Narrative: Vital Signs: Last Vital Signs Temp 99.7 F 06/24/23 20:57 Pulse 82 06/24/23 20:57 Resp 18 06/24/23 20:57 BP 143/78 H 06/24/23 20:57 Pulse Ox 98 06/24/23 20:57 O2 Del Method Room Air 06/24/23 20:57 BMI result Body Mass Index 31.9 Constitutional: Alert, somnolent but arousable, cooperative, in no acute distress. Mental Status: Oriented to person, place and time. Eyes: Pupils are equal, round, and reactive to light. Ear, Nose, and Throat: Oropharynx clear, mucous membranes moist. Ears and nose without deformities. Trachea midline. Respiratory: Clear to auscultation bilaterally. No wheezing, rales, or rhonchi. Cardiovascular: S1, S2 regular. No murmurs, rubs, or gallops. Gastrointestinal: Abdomen soft, non-tender, non-distended. Normal bowel sounds. Neurologic: Cranial nerves II-XII are grossly intact bilaterally. No focal neurological deficits. Moves all extremities spontaneously. Musculoskeletal: No cyanosis or clubbing. Extremities: Non draining ulceration on lateral aspect upper right lower extremity. Erythema and swelling of right lower extremity from just superior to knee to ankle. See picture below. Psychiatric: Normal mood and affect. Results Labs 06/24/23 14:33 06/24/23 14:33 Labs: Laboratory Results - last 24 hr 06/24/23 06/24/23 06/24/23 14:33 14:33 17:35 MCV 91.0 MCH 30.3 MCHC 33.3 RDW 14.5 Plt Count 233 MPV 9.8 Immature Gran % (Auto) 0.4 Neut % (Auto) 74.3 H Lymph % (Auto) 14.5 L [place] % (Auto) 10.2 Eos % (Auto) 0.2 Baso % (Auto) 0.4 Lymph # (Auto) 1.9 [place] # (Auto) 1.4 H Eos # (Auto) 0.0 Baso # (Auto) 0.1 Abs Immat Gran (auto) 0.06 H Absolute Neuts (auto) 9.9 H Absolute Nucleated RBC 0.000 Nucleated RBC % (auto) 0.0 Anion Gap 13 Estim Creat Clear Calc 126.3 Estimated GFR > 60 Random Glucose 117 H Lactic Acid 1.0 Calcium 10.0 Magnesium 2.4 Total Bilirubin 1.2 H Direct Bilirubin 0.6 H AST 37 ALT 28 Alkaline Phosphatase 100 Total Creatine Kinase 956 H Total Protein 8.6 H Albumin 4.2 Imaging Radiologist's Impressions: Impressions Venous Duplex 06/24/23 15:16 IMPRESSION: 1. No evidence for deep venous thrombosis in the visualized veins of the right lower extremity. 2. Mildly enlarged right inguinal lymph node is nonspecific, but demonstrates benign features and may be reactive. Correlate with physical exam. If these findings persist or enlarge, short-term repeat targeted soft tissue ultrasound can be performed as clinically indicated to assess for change. Extremity Ultrasound 06/24/23 19:52 IMPRESSION: Nonspecific soft tissue edema without any sonographic evidence of focal fluid collection and/or abscess at the site of the wound localized to the right leg. Assessment and Plan (1) Cellulitis of leg, right: Status: Acute Plan Pt is a 38-year-old male with a PMH significant for IVDU currently using, hepatitis C treated 10 years ago with recent recurrence, and daily alcohol consumption?who presents to the ED?with lower right leg pain, swelling, redness for the past week. Pt will be admitted to the hospital for treatment further evaluation of right lower leg cellulitis. Right lower leg cellulitis Patient with erythema, swelling, purulent drainage Patient meets sepsis criteria: WBC, tachycardic; lactic acid WNL at 1.0 Ultrasound of lower leg found no drainable fluid collection or abscess Patient received IVF in ED Vancomycin, started 06/24/2023 ID consult Follow cultures Question of septic arthritis of right knee Lateral and medial aspects of right knee tender upon physical examination Reduced ROM of right knee secondary to pain Analgesics for pain management Orthopedics consult Elevated CPK Creatinine kinase 956 at time of presentation Given IVF in ED, will place on maintenance fluids Recheck CPK in the morning Alcohol dependence Pt consumes 3-7 alcoholic drinks per day Denies history of withdrawal, denies morning tremors CIWA scale Hepatitis C Pt treated for hepatitis-C around 10 years ago Patient admitted on 05/07/2023-05/08/2023 for elevated LFTs Hep C viral load 3100 with hep C viral load long 3.49 on 05/07/2023 Patient should follow up outpatient with PCP/clinic IVDU Patient last used this morning Addiction medicine consult Continue Suboxone ADHD Continue home meds Anxiety Continue home meds Full Code Attending:?Dr. Colin DVT Prophylaxis: Lovenox Pt will require a hospitalization of at least two nights for treatment of?right lower leg cellulitis with IV antibiotics. Time Spent With Patient Time: Total time managing care of this patient today ____ minutes. Quality Stroke Does the patient have a stroke diagnosis?: No VTE Prior VTE?: No VTE Risk Level:: Medical - moderate - high VTE Device Contraindication: Treatment Not Indicated VTE Drug Contraindication: N/A - Med Ordered
--- NOTE | 2023-06-24 22:47 | PHA.PROG ---
Admission Date/Time: June 24, 2023 22:18 Indication: Skin Infection hx IVDU Weight in k.594 kg Adjusted body weight in K kg [place] body weight in K.6 kg Obesity Dosing Indication % IBW:137% Serum Creatinine - Last 168 Hours 06/24/23 14:33 Creatinine 1.00 Estimated CrCl and GFR - Last 168 Hours 06/24/23 14:33 Estim Creat Clear Calc 126.3 Estimated GFR > 60 Vancomycin Loading Dose: 2000 mg Current Vancomycin Dosing Regimen: 1000 mg Q8H Date and Time for next Vancomycin Level to be drawn: 06/25 @ 1500 Pharmacist Comments on Vancomycin Plan: patient receive load dose in the ER 06/24 @ 1746 Maintenance dose vancomycin 1000 mg Q8H is scheduled to start 06/25 @ 0200 Level is scheduled for prior to 4th dose Pharmacy will monitor renal function daily Varsha Do, AprilD Vancomycin dosing will take advantage of [employer] as a clinical decision support tool that uses Bayesian modeling to calculate individual patient's pharmacokinetic parameters and forecast the patient's drug concentration time course with the target goal AUC 24 range of 400 - 600 mg/L/hr.
[2023-06-24] MEDS: hydrOXYzine HCL 50 MG TABLET 100 MG PO (23:43)
[2023-06-24] MEDS: Enoxaparin Sodium 40 MG/0.4 ML SYRINGE SUBCUT (23:43)
[2023-06-24] MEDS: Pregabalin 75 MG CAPSULE 225 MG PO (23:44)
[2023-06-24] MEDS: cloNIDine HCL 0.1 MG TABLET 0.3 MG PO (23:45)
[2023-06-24 23:48] VITALS: BP 143/86; PULSE 94; RESP 18; O2SAT 97
[2023-06-24] MEDS: Lactated Ringers 1,000 ML 100 ML IVCONT (23:56)
[2023-06-24] MEDS: Acetaminophen 325 MG TABLET 650 MG PO (23:56)
[2023-06-25 00:01] VITALS: TEMP 38.1
[2023-06-25] MEDS: 0.9 % Sodium Chloride Flush 3 ML SYRINGE IVFLUSH ×3 (00:03→23:56)
--- NOTE | 2023-06-25 00:14 | PC.NURSE ---
Pt reports 9 right leg pain, pt appeared to be red to face and neck, provider Dr. Colin notified. New orders given as documented, pt medicated per JAN. RN to RN report given, pt will be transported to ED overflow. Pt aware of plan.
[2023-06-25] MEDS: diphenhydrAMINE HCL 50 MG/ML VIAL 25 MG IVPUSH (00:34)
[2023-06-25] MEDS: Nicotine 21 MG PATCH.TD24 TRANSDERMA ×2 (00:34→09:20)
--- NOTE | 2023-06-25 00:39 | PC.NURSE ---
Suboxone not given as scheduled, Pt requesting at a later time.
[2023-06-25 00:55] LABS: Lactic Acid 0.7 mmol/L (0.5-2.0)
[2023-06-25 00:56] VITALS: BP 154/86; PULSE 78; RESP 18; TEMP 37.3; O2SAT 96
[2023-06-25] MEDS: Buprenorphine HCL 2 MG TAB.SUBL 4 MG SUBLINGUAL ×2 (01:48→21:27)
--- NOTE | 2023-06-25 05:11 | PM.EVENT ---
Event Note Date of Service: 06/25/23 Event Note: Patient seen and examined at bedside. I agree with RORY Assessment finding and plan. Comes in with complaints cellulitis on right leg. Concern for injection site although patient denies. He also significant pain in the knee. At this time will start him broad-spectrum antibiotic. Patient received vancomycin but developed significant facial and neck redness concerning for red man syndrome. Will 7: Start him on linezolid, Infectious disease as well as orthopedic consult. Time Spent With Patient Time: Total time managing care of this patient today ____ minutes.
[2023-06-25 05:37] VITALS: BP 150/75; PULSE 78; RESP 18; TEMP 37.4; O2SAT 96
[2023-06-25 06:02] LABS: Hematocrit 36.9 % (42.0-52.0); Mean Corpuscular HGB Conc 32.5 g/dl (31.0-36.0); Mean Corpuscular Hemoglobin 30.1 pg (27.0-33.0); Mean Corpuscular Volume 92.5 fL (80.0-98.0); Mean Platelet Volume 10.4 fL (9.4-12.4); Platelet Count 177 X10*3/uL (160-400); Red Blood Count 3.99 X10*6/uL (4.60-5.80); Red Cell Distribution Width 14.6 % (11.0-16.0); White Blood Count 10.7 X10*3/uL (4.8-10.8)
[2023-06-25] MEDS: Linezolid/D5W 600 MG/300 ML PIGGYBACK 300 MG IV ×2 (06:04→18:28)
[2023-06-25] MEDS: Omeprazole 20 MG CAPSULE.DR PO (06:04)
[2023-06-25 06:21] LABS: Anion Gap 13 (12-20); Blood Urea Nitrogen 13 mg/dL (9-16); Calcium 8.9 mg/dL (8.4-10.2); Carbon Dioxide 22 mmol/L (22-29); Chloride 104 mmol/L (96-108); Creatinine Clr Calc Pharmacy 168.4; Estimated Glomerular Filt Rate > 60; Glucose Random 122 mg/dL (60-115); Potassium 3.9 mmol/L (3.3-5.1); Sodium 135 mmol/L (135-145)
--- NOTE | 2023-06-25 06:51 | PC.NURSE ---
Patient arrived to ED overflow from main ED at ~00:50 on 06/25, awaiting bed placement on medsurg for RLE cellulitis. A&Ox4. Pt c/o pain in RLE. Pt stated to this administrative underwriter I took fentanyl and 15 bags of heroin yesterday . Reports little effect in pain management with ordered prn morphine. Suboxone ordered which patient previously refused in the main ED per report and EMAR review. Suboxone offered again by this administrative underwriter which pt refused stating, I don't want anything with naloxone. I want subutex. I want to microdose . Covering Dr. Colin notified with order for 1x subutex ordered, given with +effect. Patient appears more comfortable resting in bed. Addiction medicine consult previously placed. Breathing is even and unlabored without distress. +pedal pulses, +cms. Warm, red skin surrounding abscess outlined prior to assuming care. Reddened area appears to be receding from outline margins. Per handoff report from ED, there was concern for pt reaction to vancomycin due to skin redness/rash on face and upper trunk after initial dose was given. Covering notified with written orders to hold next scheduled barby. orders placed for Linezolid and as well as ID consult. Bed alarm on and safety measures in place.
[2023-06-25 07:24] LABS: Amphetamine Screen Urine Not Detected (Not Detect); Barbiturates, Urine Not Detected (Not Detect); Benzodiazepines Screen Urine POSITIVE (Not Detect); Cannabinoid Screen Urine POSITIVE (Not Detect); Cocaine Screen Urine POSITIVE (Not Detect); Fentanyl, urine POSITIVE (Not Detect); Opiate Screen Urine POSITIVE (Not Detect); Phencyclidine Screen Urine Not Detected (Not Detect)
[2023-06-25 08:11] LABS: Estimated Average Glucose 91 mg/dL; Hemoglobin A1c % 4.8 %
--- NOTE | 2023-06-25 09:04 | PM.CNOR ---
History of Present Illness HPI Consult date: 06/25/23 Chief complaint: Right Leg cellulitis Narrative: Ms. Mcclellan is a 38 yo male who presented to the ED on 06/24/23 for wound to RLE. 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 He developed a pimple on Thursday. He was able to express puss from the area. He went to work and after he noticed an increase in redness and swelling. He again expressed puss from the area. Ultrasound was obtained in the ED and negative for any abscess. The patient was admitted to the medicine service with orthopedic consult. [facility] Social History Social History Household Members: Significant Other Housing: House Do you presently have visiting nurse or other home services: No Alcohol intake: former Patient Tobacco Use Status: Current everyday Tobacco user Tobacco use type: Cigarette Second Hand Smoke Exposure: Yes Substance Use Type: IV Drugs Advance Directives: Yes Advance Directives on File: Yes Advance Directives Date on File: 05/11/23 service: No Meds Allergies Allergy/AdvReac Type Severity Reaction Status Date / Time No Known Allergies Allergy Verified 06/24/23 14:11 Active Medications: Current Medications Acetaminophen (Acetaminophen 325 Mg Tablet) 650 mg PO Q6H PRN PRN Reason: Pain, Mild (Pain Scale 1-3) Last Admin: 06/24/23 23:56 Dose: 650 mg Amphetamine/Dextroamphetamine (Amphetamine Mixed Salts 10 Mg Tablet) 15 mg PO DAILY@1800 [facility] Amphetamine/Dextroamphetamine (Dextroamphetamine/Amphetamine Xr 10 Mg Cap.Er.24h) 30 mg PO BID@0800,1200 [facility] Clonidine HCl (Clonidine Hcl 0.1 Mg Tablet) 0.3 mg PO BEDTIME [facility]; Protocol Last Admin: 06/24/23 23:45 Dose: 0.3 mg Docusate Sodium (Docusate Sodium 100 Mg Capsule) 100 mg PO DAILY PRN PRN Reason: Constipation Doxepin HCl (Doxepin Hcl 25 Mg Capsule) 50 mg PO BEDTIME [facility] Enoxaparin Sodium (Enoxaparin Sodium 40 Mg/0.4 Ml Syringe) 40 mg SUBCUT Q24H [facility] Last Admin: 06/24/23 23:43 Dose: 40 mg Gabapentin (Gabapentin 300 Mg Capsule) 600 mg PO BID@0900,1200 [facility] Hydroxyzine HCl (Hydroxyzine Hcl 50 Mg Tablet) 100 mg PO BEDTIME [facility] Last Admin: 06/24/23 23:43 Dose: 100 mg Lactated Ringer's (Lr) 1,000 mls @ 100 mls/hr IVCONT .Q10H [facility] Last Admin: 06/24/23 23:56 Dose: 100 mls/hr Linezolid (Zyvox/D5w) 600 mg in 300 mls @ 300 mls/hr IV Q12H [facility] Last Admin: 06/25/23 06:04 Dose: 300 mls/hr Nicotine (Nicotine 21 Mg Patch.Td24) 21 mg TRANSDERMA DAILY [facility] Last Admin: 06/25/23 00:34 Dose: 21 mg Omeprazole (Omeprazole 20 Mg Capsule.Dr) 20 mg PO DAILY@0630 [facility] Last Admin: 06/25/23 06:04 Dose: 20 mg Ondansetron HCl (Ondansetron Hcl 4 Mg/2 Ml Vial) 4 mg IVPUSH Q8H PRN PRN Reason: Nausea and Vomiting Pharmacy Consult (Consult Rx Vancomycin Dosing) 1 each MISCELLANE DAILY PRN PRN Reason: Consult order Pregabalin (Pregabalin 75 Mg Capsule) 225 mg PO BEDTIME [facility] Last Admin: 06/24/23 23:44 Dose: 225 mg Sodium Chloride (0.9 % Sodium Chloride Flush 3 Ml Syringe) 3 ml IVFLUSH QSHIFT [facility] Last Admin: 06/25/23 00:03 Dose: 3 ml Home Medications Medication Instructions Recorded Confirmed Last Taken Type clonidine HCl 0.3 mg tablet 0.3 mg PO BEDTIME 05/06/23 06/24/23 05/06/23 History dextroamphetamine-amphetamine 15 1 tab PO DAILY@1800 05/06/23 06/24/23 05/06/23 History mg tablet dextroamphetamine-amphetamine ER 1 cap PO BID@0800,1200 05/06/23 06/24/23 05/06/23 History 30 mg 24hr capsule,extend release doxepin 50 mg capsule 50 mg PO BEDTIME 05/06/23 06/24/23 05/06/23 History hydroxyzine pamoate 50 mg capsule 100 mg PO BEDTIME 05/06/23 06/24/23 05/06/23 History pantoprazole 40 mg tablet,delayed 40 mg PO DAILY@0630 05/06/23 06/24/23 05/06/23 History release gabapentin 300 mg capsule 600 mg PO BID@0900,1200 05/07/23 06/24/23 3 Days Ago History ~05/04/23 pregabalin 225 mg capsule 225 mg PO BEDTIME 05/07/23 06/24/23 3 Days Ago History ~05/04/23 buprenorphine 8 mg-naloxone 2 mg 2 film sublingual BEDTIME 06/24/23 06/24/23 Unknown History sublingual film (Suboxone) Physical Exam Vital Signs: Vital Signs: Last Vital Signs Temp 99.3 F 06/25/23 05:37 Pulse 78 06/25/23 05:37 Resp 18 06/25/23 05:37 BP 150/75 H 06/25/23 05:37 Pulse Ox 96 06/25/23 05:37 O2 Del Method Room Air 06/25/23 05:37 BMI result Body Mass Index 31.9 Const: General: healthy appearing, comfortable, no acute distress, alert and awake Nutritional Appearance: well nourished Orientation/consciousness: patient oriented x3 HEENT: Head: Yes normocephalic and Yes atraumatic Eyes: Eyelids: Yes eyelids normal Conjunctivae: conjunctivae normal Sclerae: sclerae normal Corneas: corneas normal Pupils: Equal, round and reactive pupils present EOM: EOMs intact bilaterally Neck: Neck: Yes full ROM Resp: Effort & Inspection: normal respiratory effort, able to speak in complete sentences and not labored Cardio: Rate: regular rate Peripheral pulses: Peripheral pulses 2+ throughout GI: Palpation (GI): Soft to palpation Skin: Other: Patient has an area of induration fluctuance to the right anterior lower leg just below the knee. There is erythema extending proximally approximately 10 cm and distally down towards the top of the right foot. General skin exam: elasticity normal Lesions: no lesions Rashes: no rashes Neuro: General: patient oriented x3 Cranial nerves: Yes Equal, round and reactive pupils present and Yes Bilaterally intact EOM present Cognition (Neuro): normal cognition Extrem: Other: Quater sized area located over the proximal anteriolateral aspect of the right tibia which apears to look like this was an abscess. Pea sized open area in the middle. Surrounding erythema extending down the lower extremity. Tenderness to palpation. Small amount of purulent discharge expressed. Sensation intact. Pedal pulse intact. Results Labs 06/25/23 05:33 06/25/23 05:33 Labs: Abnormal lab results 06/24/23 06/24/23 06/25/23 Range/Units 14:33 14:33 05:33 WBC 13.4 H (4.8-10.8) X10*3/uL RBC 3.99 L (4.60-5.80) X10*6/uL Hgb 12.0 L (14.0-18.0) g/dl Hct 36.9 L (42.0-52.0) % Neut % (Auto) 74.3 H (45-73) % Lymph % (Auto) 14.5 L (20-40) % [place] # (Auto) 1.4 H (0.1-1.2) X10*3/uL Abs Immat Gran (auto) 0.06 H (0.00-0.03) X10*3/uL Absolute Neuts (auto) 9.9 H (2.0-8.3) x10*3/uL Random Glucose 117 H (60-115) mg/dL Total Bilirubin 1.2 H (0.0-1.0) mg/dL Direct Bilirubin 0.6 H (0.0-0.5) mg/dL Total Creatine Kinase 956 H (38-174) U/L Total Protein 8.6 H (6.5-8.0) g/dL Urine Opiates Screen (Not Detect) Urine Fentanyl Screen (Not Detect) U Benzodiazepines Scrn (Not Detect) Urine Cocaine Screen (Not Detect) U Marijuana (THC) Screen (Not Detect) 06/25/23 06/25/23 Range/Units 05:33 06:20 WBC (4.8-10.8) X10*3/uL RBC (4.60-5.80) X10*6/uL Hgb (14.0-18.0) g/dl Hct (42.0-52.0) % Neut % (Auto) (45-73) % Lymph % (Auto) (20-40) % [place] # (Auto) (0.1-1.2) X10*3/uL Abs Immat Gran (auto) (0.00-0.03) X10*3/uL Absolute Neuts (auto) (2.0-8.3) x10*3/uL Random Glucose 122 H (60-115) mg/dL Total Bilirubin (0.0-1.0) mg/dL Direct Bilirubin (0.0-0.5) mg/dL Total Creatine Kinase 374 H (38-174) U/L Total Protein (6.5-8.0) g/dL Urine Opiates Screen POSITIVE H (Not Detect) Urine Fentanyl Screen POSITIVE H (Not Detect) U Benzodiazepines Scrn POSITIVE H (Not Detect) Urine Cocaine Screen POSITIVE H (Not Detect) U Marijuana (THC) Screen POSITIVE H (Not Detect) H & H 06/24/23 06/25/23 Range/Units 14:33 05:33 Hgb 14.2 12.0 L (14.0-18.0) g/dl Hct 42.7 36.9 L (42.0-52.0) % All other labs normal. Assessment and Plan (1) Cellulitis of leg, right: Start date: 06/25/23 Status: Acute Continue IV abx Warm compress Monitor for improving symptoms U/S negative for abscess Pain management as appropriate No orthopeidc intervention needed at this time Time Spent With Patient Time: Total time managing care of this patient today ____ minutes. Procedures Date of Service Date of Service: 06/25/23
[2023-06-25] MEDS: Gabapentin 300 MG CAPSULE 600 MG PO ×2 (09:20→11:51)
[2023-06-25] MEDS: Dextroamphetamine/Amphetamine XR 10 MG CAP.ER.24H 30 MG PO ×2 (09:20→11:51)
[2023-06-25] MEDS: Lactated Ringers 1,000 ML 100 ML IVCONT ×2 (10:03→17:30)
--- NOTE | 2023-06-25 11:23 | HO.PM.IMPN ---
Subjective Subjective Date of Service: 06/25/23 Interval History: Complaining of right leg pain, swelling and withdrawal symptoms from opiates with pain , jitteriness, denies fever, chills, no nausea, no vomiting, no abdominal pain,no diarrhea. Noted to have small amount of purulent drainage from below right knee open area. Review of Systems All other system reviewed and negative. Physical Exam Vital Signs: Vital Signs: Last Vital Signs Temp 99.3 F 06/25/23 05:37 Pulse 78 06/25/23 05:37 Resp 18 06/25/23 05:37 BP 150/75 H 06/25/23 05:37 Pulse Ox 96 06/25/23 05:37 O2 Del Method Room Air 06/25/23 05:37 BMI result Body Mass Index 31.9 Const: Other: General awake alert x3, in no acute distress. Neck supple no JVD. CVS regular rate rhythm, Respiratory lungs clear to auscultation, no respiratory distress, no wheeze, no rhonchi. Gastrointestinal abdomen soft, nontender, bowel sounds audible, no guarding , no rigidity. Extremities right lower extremity redness extending from dorsum of foot to just above right knee with a small area of fluctuation and induration just below right knee laterally with scant purulent drainage , tenderness to palpation Right knee limited range of motion due to pain. Neuro nonfocal speech clear. Skin no rash Objective Data Active Medications Acetaminophen (Acetaminophen 325 Mg Tablet) 650 mg PO Q6H PRN PRN Reason: Pain, Mild (Pain Scale 1-3) Last Admin: 06/24/23 23:56 Dose: 650 mg Documented By: MERYL Amphetamine/Dextroamphetamine (Amphetamine Mixed Salts 10 Mg Tablet) 15 mg PO DAILY@1800 [facility] Amphetamine/Dextroamphetamine (Dextroamphetamine/Amphetamine Xr 10 Mg Cap.Er.24h) 30 mg PO BID@0800,1200 [facility] Last Admin: 06/25/23 09:20 Dose: 30 mg Documented By: TY Clonidine HCl (Clonidine Hcl 0.1 Mg Tablet) 0.3 mg PO BEDTIME [facility]; Protocol Last Admin: 06/24/23 23:45 Dose: 0.3 mg Documented By: MERYL Docusate Sodium (Docusate Sodium 100 Mg Capsule) 100 mg PO DAILY PRN PRN Reason: Constipation Doxepin HCl (Doxepin Hcl 25 Mg Capsule) 50 mg PO BEDTIME [facility] Enoxaparin Sodium (Enoxaparin Sodium 40 Mg/0.4 Ml Syringe) 40 mg SUBCUT Q24H [facility] Last Admin: 06/24/23 23:43 Dose: 40 mg Documented By: MERYL Gabapentin (Gabapentin 300 Mg Capsule) 600 mg PO BID@0900,1200 [facility] Last Admin: 06/25/23 09:20 Dose: 600 mg Documented By: TY Hydroxyzine HCl (Hydroxyzine Hcl 50 Mg Tablet) 100 mg PO BEDTIME [facility] Last Admin: 06/24/23 23:43 Dose: 100 mg Documented By: MERYL Lactated Ringer's (Lr) 1,000 mls @ 100 mls/hr IVCONT .Q10H [facility] Last Admin: 06/25/23 10:03 Dose: 100 mls/hr Documented By: TY Linezolid (Zyvox/D5w) 600 mg in 300 mls @ 300 mls/hr IV Q12H [facility] Last Infusion: 06/25/23 09:37 Dose: 0 mls/hr Documented By: TY Nicotine (Nicotine 21 Mg Patch.Td24) 21 mg TRANSDERMA DAILY [facility] Last Admin: 06/25/23 09:20 Dose: 21 mg Documented By: TY Omeprazole (Omeprazole 20 Mg Capsule.Dr) 20 mg PO DAILY@0630 [facility] Last Admin: 06/25/23 06:04 Dose: 20 mg Documented By: BLAISE Ondansetron HCl (Ondansetron Hcl 4 Mg/2 Ml Vial) 4 mg IVPUSH Q8H PRN PRN Reason: Nausea and Vomiting Pharmacy Consult (Consult Rx Vancomycin Dosing) 1 each MISCELLANE DAILY PRN PRN Reason: Consult order Pregabalin (Pregabalin 75 Mg Capsule) 225 mg PO BEDTIME [facility] Last Admin: 06/24/23 23:44 Dose: 225 mg Documented By: MERYL Sodium Chloride (0.9 % Sodium Chloride Flush 3 Ml Syringe) 3 ml IVFLUSH QSHIFT [facility] Last Admin: 06/25/23 09:37 Dose: Not Given Documented By: TY Non-Admin Reason: IV Running Labs 06/25/23 05:33 06/25/23 05:33 Labs: Laboratory Results - last 24 hr 06/24/23 06/24/23 06/24/23 14:33 14:33 17:35 MCV 91.0 MCH 30.3 MCHC 33.3 RDW 14.5 Plt Count 233 MPV 9.8 Immature Gran % (Auto) 0.4 Neut % (Auto) 74.3 H Lymph % (Auto) 14.5 L [place] % (Auto) 10.2 Eos % (Auto) 0.2 Baso % (Auto) 0.4 Lymph # (Auto) 1.9 [place] # (Auto) 1.4 H Eos # (Auto) 0.0 Baso # (Auto) 0.1 Abs Immat Gran (auto) 0.06 H Absolute Neuts (auto) 9.9 H Absolute Nucleated RBC 0.000 Nucleated RBC % (auto) 0.0 Anion Gap 13 Estim Creat Clear Calc 126.3 Estimated GFR > 60 Random Glucose 117 H Estimat Average Glucose Hemoglobin A1c % Lactic Acid 1.0 Calcium 10.0 Magnesium 2.4 Total Bilirubin 1.2 H Direct Bilirubin 0.6 H AST 37 ALT 28 Alkaline Phosphatase 100 Total Creatine Kinase 956 H Total Protein 8.6 H Albumin 4.2 Urine Opiates Screen Urine Fentanyl Screen Ur Barbiturates Screen Ur Phencyclidine Scrn Ur Amphetamines Screen U Benzodiazepines Scrn Urine Cocaine Screen U Marijuana (THC) Screen 06/25/23 06/25/23 06/25/23 00:33 05:33 05:33 MCV 92.5 MCH 30.1 MCHC 32.5 RDW 14.6 Plt Count 177 MPV 10.4 Immature Gran % (Auto) Neut % (Auto) Lymph % (Auto) [place] % (Auto) Eos % (Auto) Baso % (Auto) Lymph # (Auto) [place] # (Auto) Eos # (Auto) Baso # (Auto) Abs Immat Gran (auto) Absolute Neuts (auto) Absolute Nucleated RBC 0.000 Nucleated RBC % (auto) 0.0 Anion Gap 13 Estim Creat Clear Calc 168.4 Estimated GFR > 60 Random Glucose 122 H Estimat Average Glucose Hemoglobin A1c % Lactic Acid 0.7 Calcium 8.9 D Magnesium Total Bilirubin Direct Bilirubin AST ALT Alkaline Phosphatase Total Creatine Kinase 374 H Total Protein Albumin Urine Opiates Screen Urine Fentanyl Screen Ur Barbiturates Screen Ur Phencyclidine Scrn Ur Amphetamines Screen U Benzodiazepines Scrn Urine Cocaine Screen U Marijuana (THC) Screen 06/25/23 06/25/23 05:33 06:20 MCV MCH MCHC RDW Plt Count MPV Immature Gran % (Auto) Neut % (Auto) Lymph % (Auto) [place] % (Auto) Eos % (Auto) Baso % (Auto) Lymph # (Auto) [place] # (Auto) Eos # (Auto) Baso # (Auto) Abs Immat Gran (auto) Absolute Neuts (auto) Absolute Nucleated RBC Nucleated RBC % (auto) Anion Gap Estim Creat Clear Calc Estimated GFR Random Glucose Estimat Average Glucose 91 Hemoglobin A1c % 4.8 Lactic Acid Calcium Magnesium Total Bilirubin Direct Bilirubin AST ALT Alkaline Phosphatase Total Creatine Kinase Total Protein Albumin Urine Opiates Screen POSITIVE H Urine Fentanyl Screen POSITIVE H Ur Barbiturates Screen Not Detected Ur Phencyclidine Scrn Not Detected Ur Amphetamines Screen Not Detected U Benzodiazepines Scrn POSITIVE H Urine Cocaine Screen POSITIVE H U Marijuana (THC) Screen POSITIVE H Assessment and Plan (1) Cellulitis of leg, right: Status: Acute Plan 38-year-old male with a PMH significant for IVDU currently using, hepatitis C treated 10 years ago with recent recurrence, and daily alcohol consumption?who presents to the ED?with lower right leg pain, swelling, redness for the past week. Pt will be admitted to the hospital for treatment further evaluation of right lower leg cellulitis. Sepsis due to Right lower leg cellulitis Persistent erythema, tenderness, with small area of fluctuation with surrounding induration WBC normalize, tachycardia resolved, Ultrasound of lower leg found no drainable fluid collection or abscess Treated with IV Vancomycin, but developed significant facial and neck redness concerning for red man syndrome therefore antibiotic switched to linezolid started 06/24/2023 Will use hot compresses if no improvement consult gen surgery. Follow blood cultures and ID consultation Question of septic arthritis of right knee Reduced ROM of right knee secondary to pain, seen by Ortho no intervention recommended continue analgesics. Elevated CPK Creatinine kinase 956 on admission improved to 374 with IV fluid continue fluids and encourage po ,normal renal function. Alcohol dependence Pt consumes 3-7 alcoholic drinks per day, no withdrawal symptoms follow CIWA and addiction medicine consult. Hepatitis C Pt treated for hepatitis-C around 10 years ago Patient admitted on 05/07/2023-05/08/2023 for elevated LFTs, liver enzymes normal Hep C viral load 3100 with hep C viral load long 3.49 on 05/07/2023 outpatient follow-up with PCP/clinic IVDU Active IV drug use urine toxicology positive for benzo, cocaine, marijuana, opiates and fentanyl Addiction Medicine consult obtained seen by Lisa Encinas she recommend oxycodone 10 mg q.6 hours scheduled on IV morphine prn and ativan for Wd sxs. Received couple doses of Suboxone ADHD Continue home meds Anxiety Continue home meds Full Code DVT Prophylaxis: Lovenox Pt will require continued inpatient hospitalization for treatment of?right lower leg cellulitis with IV antibiotics. Time Spent With Patient Time: Total time managing care of this patient today ____ minutes. Quality Stroke Does the patient have a stroke diagnosis?: No VTE Prior VTE?: No VTE Risk Level:: Medical - moderate - high VTE Device Contraindication: Treatment Not Indicated VTE Drug Contraindication: N/A - Med Ordered
[2023-06-25] MEDS: Morphine Sulfate 4 MG/ML CARTRIDGE IVPUSH ×3 (11:51→21:31)
[2023-06-25] MEDS: oxyCODONE HCl Immed Release 5 MG TABLET 10 MG PO ×3 (13:21→23:56)
[2023-06-25 14:14] VITALS: BP 167/91; PULSE 96; RESP 20; TEMP 36.8; O2SAT 100
--- NOTE | 2023-06-25 16:03 | MHC.RECOVRN ---
This ticket writer met with patient after receiving addiction consult, patient presented to the ED concerns with right leg swelling, redness, increased pain. Pt was sitting on edge of bed with this ticket writer entered the room. Pt reports had been stable on Sublocade INJ, last Sublocade INJ over one month ago. Pt reports recurrence, 5 bag-50 bags IV daily, intermittent, sometimes daily use. Pt reports RN ANESTHESIOLOGY, used 35 heroin bags IV. Pt reports ETOH use, pt reports one week RN ANESTHESIOLOGY had started to decrease from 10 nips daily to 5 nips for several days, then 4 nips then zero nips. Pt reports 4 nips ETOH RN ANESTHESIOLOGY. Pt denies ETOH withdrawal. Pt reports no hx of ETOH seizures. Pt reports restless, anxious. Pt not visibly diaphoretic. Pt reports did not experience precipiated withdrawal after initial dosage of Subutex, interested in continuing on Subutex. Pt reports plans to follow up with Sublocade Provider to continue on Sublocade. Reviewed findings with Provider.
[2023-06-25 16:33] LABS: Vancomycin Trough < 2.0 mcg/mL (10.0-20.0)
[2023-06-25] MEDS: Amphetamine Mixed Salts 10 MG TABLET 15 MG PO (17:27)
[2023-06-25 19:08] VITALS: BMI 32.9
[2023-06-25 19:38] VITALS: BP 166/92; PULSE 86; RESP 18; TEMP 36.3; O2SAT 100
[2023-06-25] MEDS: cloNIDine HCL 0.1 MG TABLET 0.3 MG PO (20:22)
[2023-06-25] MEDS: Pregabalin 75 MG CAPSULE 225 MG PO (20:22)
[2023-06-25] MEDS: hydrOXYzine HCL 50 MG TABLET 100 MG PO (20:22)
[2023-06-25] MEDS: Doxepin HCl 25 MG CAPSULE 50 MG PO (20:22)
[2023-06-25] MEDS: Enoxaparin Sodium 40 MG/0.4 ML SYRINGE SUBCUT (21:27)
--- NOTE | 2023-06-25 21:33 | P.PNADD_ITS ---
Subjective Subjective Date of Service: 06/25/23 Reason For Visit: Right Leg cellulitis Interim History: Patient medically admitted with cellulitis of right leg History of OUD--engaged in treatment and prescribed Suboxone. Seen earlier in the day by sales ambassador and substance use history obtained--prior to admission patient reported using approx 3 bundles of heroin/fentanyl daily as well as drinking several nips. In terms of alcohol, patient reported significant decrease in amount over the last week. When seen by this technical writer patient was awake, alert and engaged in interview. Briefly discussed Suboxone dosing as flor had inititally declined 4mg Suboxone, then agreeable to 4mg Subutex. He denies any worsening of withdrawal sx following Subutex. He reports that his goal is to get back on Subooxne, however at this time he wants to address his pain Reporting pain in his leg and requesting additional pain medication--visibly uncomfortable and grimacing Mental Status Exam Mental Status Exam Patient Appearance: Appropriate Patient Orientation: Person, Place, Time and Situation Level of Consciousness: Awake and Appropriate Patient Behavior: Cooperative Diagnostics Vital Signs (24Hr): Vital Signs - 24 hr 06/24/23 23:48 06/25/23 00:01 06/25/23 00:56 Temperature 100.5 F H 99.1 F Pulse Rate 94 78 Respiratory Rate 18 18 Blood Pressure 143/86 H 154/86 H Pulse Oximetry 97 96 Oxygen Delivery Method Room Air Room Air 06/25/23 05:37 06/25/23 14:14 06/25/23 19:38 Temperature 99.3 F 98.3 F 97.3 F Pulse Rate 78 96 86 Respiratory Rate 18 20 18 Blood Pressure 150/75 H 167/91 H 166/92 H Pulse Oximetry 96 100 100 Oxygen Delivery Method Room Air Room Air Room Air BMI result Body Mass Index 32.9 Labs 06/25/23 05:33 06/25/23 05:33 Labs: Laboratory Results - last 48 hr 06/24/23 06/24/23 06/24/23 14:33 14:33 17:35 WBC 13.4 H RBC 4.69 Hgb 14.2 Hct 42.7 MCV 91.0 MCH 30.3 MCHC 33.3 RDW 14.5 Plt Count 233 MPV 9.8 Immature Gran % (Auto) 0.4 Neut % (Auto) 74.3 H Lymph % (Auto) 14.5 L Ferry % (Auto) 10.2 Eos % (Auto) 0.2 Baso % (Auto) 0.4 Lymph # (Auto) 1.9 Ferry # (Auto) 1.4 H Eos # (Auto) 0.0 Baso # (Auto) 0.1 Abs Immat Gran (auto) 0.06 H Absolute Neuts (auto) 9.9 H Absolute Nucleated RBC 0.000 Nucleated RBC % (auto) 0.0 Sodium 137 Potassium 3.8 Chloride 102 Carbon Dioxide 26 Anion Gap 13 BUN 14 Creatinine 1.00 Estim Creat Clear Calc 126.3 Estimated GFR > 60 Random Glucose 117 H Estimat Average Glucose Hemoglobin A1c % Lactic Acid 1.0 Calcium 10.0 Magnesium 2.4 Total Bilirubin 1.2 H Direct Bilirubin 0.6 H AST 37 ALT 28 Alkaline Phosphatase 100 Total Creatine Kinase 956 H Total Protein 8.6 H Albumin 4.2 Vancomycin Trough Urine Opiates Screen Urine Fentanyl Screen Ur Barbiturates Screen Ur Phencyclidine Scrn Ur Amphetamines Screen U Benzodiazepines Scrn Urine Cocaine Screen U Marijuana (THC) Screen 06/25/23 06/25/23 06/25/23 00:33 05:33 05:33 WBC 10.7 RBC 3.99 L Hgb 12.0 L Hct 36.9 L MCV 92.5 MCH 30.1 MCHC 32.5 RDW 14.6 Plt Count 177 MPV 10.4 Immature Gran % (Auto) Neut % (Auto) Lymph % (Auto) Ferry % (Auto) Eos % (Auto) Baso % (Auto) Lymph # (Auto) Ferry # (Auto) Eos # (Auto) Baso # (Auto) Abs Immat Gran (auto) Absolute Neuts (auto) Absolute Nucleated RBC 0.000 Nucleated RBC % (auto) 0.0 Sodium 135 Potassium 3.9 Chloride 104 Carbon Dioxide 22 Anion Gap 13 BUN 13 Creatinine 0.75 Estim Creat Clear Calc 168.4 Estimated GFR > 60 Random Glucose 122 H Estimat Average Glucose Hemoglobin A1c % Lactic Acid 0.7 Calcium 8.9 D Magnesium Total Bilirubin Direct Bilirubin AST ALT Alkaline Phosphatase Total Creatine Kinase 374 H Total Protein Albumin Vancomycin Trough Urine Opiates Screen Urine Fentanyl Screen Ur Barbiturates Screen Ur Phencyclidine Scrn Ur Amphetamines Screen U Benzodiazepines Scrn Urine Cocaine Screen U Marijuana (THC) Screen 06/25/23 06/25/23 06/25/23 05:33 06:20 16:08 WBC RBC Hgb Hct MCV MCH MCHC RDW Plt Count MPV Immature Gran % (Auto) Neut % (Auto) Lymph % (Auto) Ferry % (Auto) Eos % (Auto) Baso % (Auto) Lymph # (Auto) Ferry # (Auto) Eos # (Auto) Baso # (Auto) Abs Immat Gran (auto) Absolute Neuts (auto) Absolute Nucleated RBC Nucleated RBC % (auto) Sodium Potassium Chloride Carbon Dioxide Anion Gap BUN Creatinine Estim Creat Clear Calc Estimated GFR Random Glucose Estimat Average Glucose 91 Hemoglobin A1c % 4.8 Lactic Acid Calcium Magnesium Total Bilirubin Direct Bilirubin AST ALT Alkaline Phosphatase Total Creatine Kinase Total Protein Albumin Vancomycin Trough < 2.0 L Urine Opiates Screen POSITIVE H Urine Fentanyl Screen POSITIVE H Ur Barbiturates Screen Not Detected Ur Phencyclidine Scrn Not Detected Ur Amphetamines Screen Not Detected U Benzodiazepines Scrn POSITIVE H Urine Cocaine Screen POSITIVE H U Marijuana (THC) Screen POSITIVE H Imaging Radiology Impressions: ITS Impressions Venous Duplex 06/24/23 15:16 IMPRESSION: 1. No evidence for deep venous thrombosis in the visualized veins of the right lower extremity. 2. Mildly enlarged right inguinal lymph node is nonspecific, but demonstrates benign features and may be reactive. Correlate with physical exam. If these findings persist or enlarge, short-term repeat targeted soft tissue ultrasound can be performed as clinically indicated to assess for change. Extremity Ultrasound 06/24/23 19:52 IMPRESSION: Nonspecific soft tissue edema without any sonographic evidence of focal fluid collection and/or abscess at the site of the wound localized to the right leg. Medications Medications Current Medications Acetaminophen (Acetaminophen 325 Mg Tablet) 650 mg PO Q6H PRN PRN Reason: Pain, Mild (Pain Scale 1-3) Last Admin: 06/24/23 23:56 Dose: 650 mg Amphetamine/Dextroamphetamine (Amphetamine Mixed Salts 10 Mg Tablet) 15 mg PO DAILY@1800 [facility] Last Admin: 06/25/23 17:27 Dose: 15 mg Amphetamine/Dextroamphetamine (Dextroamphetamine/Amphetamine Xr 10 Mg Cap.Er.24h) 30 mg PO BID@0800,1200 [facility] Last Admin: 06/25/23 11:51 Dose: 30 mg Buprenorphine HCl (Buprenorphine Hcl 2 Mg Tab.Subl) 4 mg SUBLINGUAL DAILY [facility] Last Admin: 06/25/23 21:27 Dose: 4 mg Clonidine HCl (Clonidine Hcl 0.1 Mg Tablet) 0.3 mg PO BEDTIME [facility]; Protocol Last Admin: 06/25/23 20:22 Dose: 0.3 mg Docusate Sodium (Docusate Sodium 100 Mg Capsule) 100 mg PO DAILY PRN PRN Reason: Constipation Doxepin HCl (Doxepin Hcl 25 Mg Capsule) 50 mg PO BEDTIME [facility] Last Admin: 06/25/23 20:22 Dose: 50 mg Enoxaparin Sodium (Enoxaparin Sodium 40 Mg/0.4 Ml Syringe) 40 mg SUBCUT Q24H [facility] Last Admin: 06/25/23 21:27 Dose: 40 mg Gabapentin (Gabapentin 300 Mg Capsule) 600 mg PO BID@0900,1200 [facility] Last Admin: 06/25/23 11:51 Dose: 600 mg Hydroxyzine HCl (Hydroxyzine Hcl 50 Mg Tablet) 100 mg PO BEDTIME [facility] Last Admin: 06/25/23 20:22 Dose: 100 mg Lactated Ringer's (Lr) 1,000 mls @ 100 mls/hr IVCONT .Q10H [facility] Last Admin: 06/25/23 17:30 Dose: 100 mls/hr Linezolid (Zyvox/D5w) 600 mg in 300 mls @ 300 mls/hr IV Q12H [facility] Last Infusion: 06/25/23 20:30 Dose: Infused Lorazepam (Lorazepam 0.5 Mg Tablet) 0.5 mg PO Q8H PRN PRN Reason: Restlessness Morphine Sulfate (Morphine Sulfate 4 Mg/Ml Cartridge) 4 mg IVPUSH Q4H PRN; Protocol PRN Reason: Opiate Withdrawal Last Admin: 06/25/23 21:31 Dose: 4 mg Nicotine (Nicotine 21 Mg Patch.Td24) 21 mg TRANSDERMA DAILY [facility] Last Admin: 06/25/23 09:20 Dose: 21 mg Omeprazole (Omeprazole 20 Mg Capsule.Dr) 20 mg PO DAILY@0630 [facility] Last Admin: 06/25/23 06:04 Dose: 20 mg Ondansetron HCl (Ondansetron Hcl 4 Mg/2 Ml Vial) 4 mg IVPUSH Q8H PRN PRN Reason: Nausea and Vomiting Oxycodone HCl (Oxycodone Hcl Immed Release 5 Mg Tablet) 10 mg PO Q6H [facility] Last Admin: 06/25/23 18:37 Dose: 10 mg Pregabalin (Pregabalin 75 Mg Capsule) 225 mg PO BEDTIME [facility] Last Admin: 06/25/23 20:22 Dose: 225 mg Sodium Chloride (0.9 % Sodium Chloride Flush 3 Ml Syringe) 3 ml IVFLUSH QSHIFT [facility] Last Admin: 06/25/23 17:27 Dose: 3 ml Allergies Allergies Allergy/AdvReac Type Severity Reaction Status Date / Time No Known Allergies Allergy Verified 06/24/23 14:11 Assessment & Plan Assessment & Plan (1) Opioid use disorder: Status: Acute Code(s): F11.90 - Opioid use, unspecified, uncomplicated Assessment and Plan: * Increase pain medications due to patients opioid tolerance * Re-assess suboxone dosing tmrw * Scheduled oxycodone --q6h * will continue to follow Total time managing care of this patient today _30___ minutes.
--- NOTE | 2023-06-25 21:59 | P.CNID_ITS ---
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 He thinks received tetanus shot. He has had worsening redness and swelling RLE after found pimple and pressed out some purulence. He said he has had MRSA in past. He has had Hepatitis C and was supposed to see GI but had trouble making appointment. He has viral load 3100 on 05/07 for Hepatitis C. He denies cirrhosis. He received Vancomycin and had redness face and torso, red man while given. Review of Systems Review of Systems: Yes all other systems are reviewed and are negative [facility] Past Medical History Medical History (Updated 06/25/23 @ 22:14 by Isabel Saunders MD) H/O endocarditis H/O methicillin resistant Staphylococcus aureus Opioid use disorder Family History Family history: reviewed and not pertinent Social History Social History Household Members: Family Household Members Other:: Mother Housing: House Do you presently have visiting nurse or other home services: No Unable to assess alcohol history related to: Unknown Alcohol intake: former Patient Tobacco Use Status: Current everyday Tobacco user Tobacco use type: Cigarette Cigarette Packs Per Day: 1 Cigarettes Per Day: 20.0 e-Cigarette/Vaping Use: Never Used Second Hand Smoke Exposure: No Substance Use Type: Amphetamines, Crack/Cocaine and Marijuana Advance Directives Date on File: 05/11/23 service: No Meds Allergies Allergy/AdvReac Type Severity Reaction Status Date / Time No Known Allergies Allergy Verified 06/24/23 14:11 Active Medications: Current Medications Acetaminophen (Acetaminophen 325 Mg Tablet) 650 mg PO Q6H PRN PRN Reason: Pain, Mild (Pain Scale 1-3) Last Admin: 06/24/23 23:56 Dose: 650 mg Amphetamine/Dextroamphetamine (Amphetamine Mixed Salts 10 Mg Tablet) 15 mg PO DAILY@1800 [facility] Last Admin: 06/25/23 17:27 Dose: 15 mg Amphetamine/Dextroamphetamine (Dextroamphetamine/Amphetamine Xr 10 Mg Cap.Er.24h) 30 mg PO BID@0800,1200 [facility] Last Admin: 06/25/23 11:51 Dose: 30 mg Buprenorphine HCl (Buprenorphine Hcl 2 Mg Tab.Subl) 4 mg SUBLINGUAL DAILY [facility] Last Admin: 06/25/23 21:27 Dose: 4 mg Clonidine HCl (Clonidine Hcl 0.1 Mg Tablet) 0.3 mg PO BEDTIME [facility]; Protocol Last Admin: 06/25/23 20:22 Dose: 0.3 mg Docusate Sodium (Docusate Sodium 100 Mg Capsule) 100 mg PO DAILY PRN PRN Reason: Constipation Doxepin HCl (Doxepin Hcl 25 Mg Capsule) 50 mg PO BEDTIME [facility] Last Admin: 06/25/23 20:22 Dose: 50 mg Enoxaparin Sodium (Enoxaparin Sodium 40 Mg/0.4 Ml Syringe) 40 mg SUBCUT Q24H [facility] Last Admin: 06/25/23 21:27 Dose: 40 mg Gabapentin (Gabapentin 300 Mg Capsule) 600 mg PO BID@0900,1200 [facility] Last Admin: 06/25/23 11:51 Dose: 600 mg Hydroxyzine HCl (Hydroxyzine Hcl 50 Mg Tablet) 100 mg PO BEDTIME [facility] Last Admin: 06/25/23 20:22 Dose: 100 mg Lactated Ringer's (Lr) 1,000 mls @ 100 mls/hr IVCONT .Q10H [facility] Last Admin: 06/25/23 17:30 Dose: 100 mls/hr Linezolid (Zyvox/D5w) 600 mg in 300 mls @ 300 mls/hr IV Q12H [facility] Last Infusion: 06/25/23 20:30 Dose: Infused Lorazepam (Lorazepam 0.5 Mg Tablet) 0.5 mg PO Q8H PRN PRN Reason: Restlessness Morphine Sulfate (Morphine Sulfate 4 Mg/Ml Cartridge) 4 mg IVPUSH Q4H PRN; Protocol PRN Reason: Opiate Withdrawal Last Admin: 06/25/23 21:31 Dose: 4 mg Nicotine (Nicotine 21 Mg Patch.Td24) 21 mg TRANSDERMA DAILY [facility] Last Admin: 06/25/23 09:20 Dose: 21 mg Omeprazole (Omeprazole 20 Mg Capsule.Dr) 20 mg PO DAILY@0630 [facility] Last Admin: 06/25/23 06:04 Dose: 20 mg Ondansetron HCl (Ondansetron Hcl 4 Mg/2 Ml Vial) 4 mg IVPUSH Q8H PRN PRN Reason: Nausea and Vomiting Oxycodone HCl (Oxycodone Hcl Immed Release 5 Mg Tablet) 10 mg PO Q6H [facility] Last Admin: 06/25/23 18:37 Dose: 10 mg Pregabalin (Pregabalin 75 Mg Capsule) 225 mg PO BEDTIME [facility] Last Admin: 06/25/23 20:22 Dose: 225 mg Sodium Chloride (0.9 % Sodium Chloride Flush 3 Ml Syringe) 3 ml IVFLUSH QSHIFT [facility] Last Admin: 06/25/23 17:27 Dose: 3 ml Home Medications Medication Instructions Recorded Confirmed Last Taken Type clonidine HCl 0.3 mg tablet 0.3 mg PO BEDTIME 05/06/23 06/24/23 05/06/23 History dextroamphetamine-amphetamine 15 1 tab PO DAILY@1800 05/06/23 06/24/23 05/06/23 History mg tablet dextroamphetamine-amphetamine ER 1 cap PO BID@0800,1200 05/06/23 06/24/23 05/06/23 History 30 mg 24hr capsule,extend release doxepin 50 mg capsule 50 mg PO BEDTIME 05/06/23 06/24/23 05/06/23 History hydroxyzine pamoate 50 mg capsule 100 mg PO BEDTIME 05/06/23 06/24/23 05/06/23 History pantoprazole 40 mg tablet,delayed 40 mg PO DAILY@0630 05/06/23 06/24/23 05/06/23 History release gabapentin 300 mg capsule 600 mg PO BID@0900,1200 05/07/23 06/24/23 3 Days Ago History ~05/04/23 pregabalin 225 mg capsule 225 mg PO BEDTIME 05/07/23 06/24/23 3 Days Ago History ~05/04/23 buprenorphine 8 mg-naloxone 2 mg 2 film sublingual BEDTIME 06/24/23 06/24/23 Unknown History sublingual film (Suboxone) Physical Exam Vital Signs: Vital Signs: Last Vital Signs Temp 97.3 F 06/25/23 19:38 Pulse 86 06/25/23 19:38 Resp 18 06/25/23 19:38 BP 166/92 H 06/25/23 19:38 Pulse Ox 100 06/25/23 19:38 O2 Del Method Room Air 06/25/23 19:38 BMI result Body Mass Index 32.9 Const: General: cooperative HEENT: Head: Yes normal to inspection Face and sinus: Yes normal facial exam Mouth: Normal oral and palatal mucosa present Teeth and gingiva: dentition normal Eyes: General: appearance normal, both eyes and all related structures Pupils: Equal, round and reactive pupils present Resp: Effort & Inspection: normal respiratory effort Cardio: Rate: regular rate Rhythm: regular rhythm GI: Palpation (GI): Soft to palpation and nontender : General: Yes no CVA tenderness Back/Spine/Pelvis: Back: no CVA tenderness Skin: General skin exam: no rashes or lesions noted Neuro: General: moves all extremities Cranial nerves: Yes Equal, round and reactive pupils present Extrem: Other: reddened RLE from below knee to ankles Psych: Appearance: grossly normal Results Labs 06/25/23 05:33 06/25/23 05:33 Labs: Short CBC 06/25/23 Range/Units 05:33 WBC 10.7 (4.8-10.8) X10*3/uL Hgb 12.0 L (14.0-18.0) g/dl Hct 36.9 L (42.0-52.0) % Plt Count 177 (160-400) X10*3/uL BMP 06/25/23 05:33 Sodium 135 Potassium 3.9 Chloride 104 Carbon Dioxide 22 BUN 13 Creatinine 0.75 Calcium 8.9 D Cardiac Enzymes 06/25/23 Range/Units 05:33 Total Creatine Kinase 374 H (38-174) U/L Microbiology Microbiology Results: Microbiology 06/24/23 17:35 Blood - Venous Blood Culture - Preliminary No growth after 24 hours. 06/24/23 17:35 Blood - Venous Blood Culture - Preliminary No growth after 24 hours. Assessment and Plan (1) Opioid use disorder: Status: Acute (2) Cellulitis of leg, right: Status: Acute He had more severe response to Vancomycin with apparently large amount of redness chest and torso. He is on linezolid now and continue linezolid for total 10 days probably. Add Ceftriaxone for now also cover gram negative organism? from floor/stairs. (3) Elevated LFTs: Status: Acute (4) H/O endocarditis: Status: Acute (5) H/O methicillin resistant Staphylococcus aureus: Status: Acute (6) Hepatitis C: Status: Inactive He has viral load at this time,may have had treatment in past Plan Would follow up with GI providers and check HIV test as well. Time Spent With Patient Time: Total time managing care of this patient today ____ minutes.
[2023-06-25] MEDS: cefTRIAXone sodium 2 GM in 0.9 % Sodium Chloride 50 ML IV (22:29)
[2023-06-25 23:27] VITALS: BP 125/77; PULSE 78; RESP 16; TEMP 36.8; O2SAT 100
[2023-06-26 02:51] VITALS: BP 161/85; PULSE 75; RESP 18; TEMP 36.2; O2SAT 96
[2023-06-26 03:08] LABS: HIV AB/AG Nonreactive (Nonreactive); HIV Num 1 0.05 S/CO (0.00-0.99)
[2023-06-26] MEDS: Lactated Ringers 1,000 ML 100 ML IVCONT (05:04)
[2023-06-26] MEDS: Linezolid/D5W 600 MG/300 ML PIGGYBACK 300 MG IV (05:04)
[2023-06-26] MEDS: oxyCODONE HCl Immed Release 5 MG TABLET 10 MG PO (05:49)
[2023-06-26] MEDS: Omeprazole 20 MG CAPSULE.DR PO (05:50)
[2023-06-26 06:35] LABS: Hematocrit 36.6 % (42.0-52.0); Hemoglobin 12.1 g/dl (14.0-18.0); Mean Corpuscular HGB Conc 33.1 g/dl (31.0-36.0); Mean Corpuscular Hemoglobin 30.3 pg (27.0-33.0); Mean Corpuscular Volume 91.7 fL (80.0-98.0); Mean Platelet Volume 10.8 fL (9.4-12.4); Platelet Count 231 X10*3/uL (160-400); Red Blood Count 3.99 X10*6/uL (4.60-5.80); Red Cell Distribution Width 14.4 % (11.0-16.0); White Blood Count 8.4 X10*3/uL (4.8-10.8)
[2023-06-26 06:54] LABS: Creatinine Clr Calc Pharmacy 188.8; Estimated Glomerular Filt Rate > 60
[2023-06-26 08:00] VITALS: BP 138/80; PULSE 80; RESP 17; TEMP 36.2; O2SAT 100
[2023-06-26] MEDS: Dextroamphetamine/Amphetamine XR 10 MG CAP.ER.24H 30 MG PO (09:11)
[2023-06-26] MEDS: Gabapentin 300 MG CAPSULE 600 MG PO (09:11)
[2023-06-26] MEDS: Nicotine 21 MG PATCH.TD24 TRANSDERMA (09:12)
[2023-06-26] MEDS: Buprenorphine HCL 2 MG TAB.SUBL 4 MG SUBLINGUAL (09:12)
[2023-06-26] MEDS: Morphine Sulfate 4 MG/ML CARTRIDGE IVPUSH (09:13)
[2023-06-26] MEDS: 0.9 % Sodium Chloride Flush 3 ML SYRINGE IVFLUSH (09:20)
--- NOTE | 2023-06-26 10:12 | MHC.RECOVRN ---
This sports writer met with patient, patient presented to ED for increased swelling/redness in LLE. Pt was sitting in chair, watching t.v. Pt reports pain 8/10 currenlty, pt states when standing 10/10 pain, sharp, shooting, stabbing. Pt grimacing during assessment. Reviewed findings with Provider Lisa Encinas.
--- NOTE | 2023-06-26 11:14 | PC.NURSE ---
Pt. left AMA, provider and this Nurse educate the pt. about infection and disease process, pain management, pt. stated he understood the risks but he have to leave due to family emergency and he will return later.
--- NOTE | 2023-06-26 12:43 | MHC.CM.PN ---
Patient left AMA prior to being seen by this marketing information manager.
--- NOTE | 2023-06-26 14:26 | PM.DS ---
DS: Providers Provider Date of Service: 06/26/23 Date of admission: 06/24/23 22:18 Date of discharge: 06/26/23 Primary care physician: Abi Conklin MD Consults: 06/24/23 22:18 Addiction Medicine Routine Consulting Provider: Addiction Covering Reason for consultation: IDVU Consult to Orthopedics [place]ine [place]ing [place] [facility] Reason for consultation: ?Septic arthritis of right knee 06/24/23 23:09 Consult to Infectious Diseases Routine Consulting Provider[place] [facility] [place] [facility] Reason for consultation: Right lower leg cellulitis 06/25/23 05:10 Consult to Infectious Diseases Routine Consulting Provider: Isabel Saunders Reason for consultation: cellilitis, allergy to vanc DS: Diagnosis Discharge Diagnosis (1) Opioid use disorder: Status: Acute (2) Cellulitis of leg, right: Status: Acute (3) Elevated LFTs: Status: Acute (4) H/O endocarditis: Status: Acute (5) H/O methicillin resistant Staphylococcus aureus: Status: Acute (6) Hepatitis C: Status: Inactive DS: Summary Hospital Course Hospital Course: 38-year-old male with a PMH significant for IVDU currently using, hepatitis C treated 10 years ago with recent recurrence, and daily alcohol consumption?who presents to the ED?with lower right leg pain, swelling, redness for the past week.? 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 Last week patient was kneeling on the stairs washing carpet when he got a piece of wood in his leg.? This past Thursday morning he noticed he had a ?pimple? that popped and drained.? The following day the pimple returned but was bigger.? It popped again and drained purulent discharge.? Patient reports that wound has been draining a purulent discharge daily since then.? Swelling, redness, pain have continue to increase to the point where pt can now barely walk or bend his knee secondary to pain.? Patient denies fever, chills, nausea, vomiting.? Patient with polysubstance use disorder has been currently using both IV heroin and alcohol daily.? Patient had 10-15 bags of heroin and 3-5 naps this morning.? Patient was recently admitted to the hospital for elevated LFTs on 05/07/2023 and found to have a hepatitis C viral load of over 3000.? He was unable to make a his appointment at the outpatient clinic for follow-up.? Patient denies chest pain/pressure, palpitations.? No shortness of breath.? Denies abdominal pain. In the ED patient was afebrile but tachycardic up to 126 and hypertensive up to 174/102. Labs were significant for a leukocytosis of 13.4, creatinine kinase 956.? H&H stable.? Electrolytes WNL.? Renal function at baseline.? Hepatic function WNL.? Ultrasound of lower right extremity found no evidence for DVT but did show nonspecific mildly enlarged right inguinal lymph node.? Right lower leg ultrasound found nonspecific soft tissue edema without any sonographic evidence of focal fluid collection and/or abscess at site of the wound. Pt was treated with vanco, ondansetron, morphine, and IVF. Pt will be admitted to the hospital for treatment further evaluation of right lower leg cellulitis. [facility] Patient admitted to the floor and seen by ID in consultation. Given past reaction to vancomycin IV linezolid was chosen along with ceftriaxone to cover possible g negatives. Ultimately cultures grew back negative after 24 hours. The day of discharge, patient was experiencing considerable pain; offer was made to increase his pain medicine as recommended by addiction Medicine however patient stated he had a family emergency and wished to leave. Based on initial markings cellulitis has improved significantly. He was asked to sign out against medical advice as I do not believe he was suitable for discharge today. He was agreeable and will complete a course of linezolid as outpatient. He knows to return for fever chills or worsening erythema. He is encouraged to abstain from marrow in and other opiates. Patient signed out AMA Time Spent with Patient Time attestation: Total time managing care of this patient today ____ minutes. Discharge coordination time: Greater than 30 minutes Quality: Safe Use of Opioids Does Pt have an Active Cancer Diagnosis on the Problem List?: No Quality: Stroke Does the patient have a stroke diagnosis?: No Physical Exam Vital Signs: Vital Signs: Last Vital Signs Temp 97.1 F 06/26/23 08:00 Pulse 80 06/26/23 08:00 Resp 17 06/26/23 08:00 BP 138/80 06/26/23 08:00 Pulse Ox 100 06/26/23 08:00 O2 Del Method Room Air 06/26/23 08:00 BMI result Body Mass Index 32.9 Const: Other: Uncomfortable appearing but no acute distress Resp: Other: Clear to auscultation bilaterally no rales rhonchi or wheezes Cardio: Other: No S4; positive S1-S2; no S3 murmurs rubs or gallops Extrem: Other: Proximally 68 cm round erythematous area right anterior tibialis region DS: Data Data Completed and Pending Labs on day of discharge: Laboratory Results - last 24 hr 06/25/23 06/25/23 06/26/23 16:08 23:21 05:35 WBC RBC Hgb Hct MCV MCH MCHC RDW Plt Count MPV Absolute Nucleated RBC Nucleated RBC % (auto) Creatinine 0.68 Estim Creat Clear Calc 188.8 Estimated GFR > 60 Total Creatine Kinase 120 Vancomycin Trough < 2.0 L HIV 1&2 Ab/P24 Ag 4thGn Nonreactive 06/26/23 05:35 WBC 8.4 RBC 3.99 L Hgb 12.1 L Hct 36.6 L MCV 91.7 MCH 30.3 MCHC 33.1 RDW 14.4 Plt Count 231 D MPV 10.8 Absolute Nucleated RBC 0.000 Nucleated RBC % (auto) 0.0 Creatinine Estim Creat Clear Calc Estimated GFR Total Creatine Kinase Vancomycin Trough HIV 1&2 Ab/P24 Ag 4thGn Preliminary micro results at discharge 06/24/23 17:35 Blood Culture - Preliminary Blood - Venous No growth after 24 hours. 06/24/23 17:35 Blood Culture - Preliminary Blood - Venous No growth after 24 hours. Discharge Plan Discharge Anticipated Discharge Date/Time: 06/26/23 10:54 Patient Disposition: Left Against Medical Advice Discharge Diagnosis: Cellulitis right leg Referrals: Abi Conklin MD [Primary Care Provider] - 1 Week Discharge Medications: New oxycodone 5 mg Tablet 10 mg PO Q6H Qty: 20 0RF Rx Instructions: Partial Fill upon patient request. linezolid 600 mg tablet 600 mg PO BID Qty: 20 0RF Continued doxepin 50 mg capsule 50 mg PO BEDTIME clonidine HCl 0.3 mg tablet 0.3 mg PO BEDTIME hydroxyzine pamoate 50 mg capsule 100 mg PO BEDTIME pantoprazole 40 mg tablet,delayed release (DR/EC) 40 mg PO DAILY@0630 dextroamphetamine-amphetamine 15 mg tablet 1 tab PO DAILY@1800 dextroamphetamine-amphetamine 30 mg capsule,extended release 24hr 1 cap PO BID@0800,1200 gabapentin 300 mg capsule 600 mg PO BID@0900,1200 pregabalin 225 mg capsule 225 mg PO BEDTIME buprenorphine-naloxone [Suboxone] 8-2 mg film 2 film sublingual BEDTIME Discharge Orders: Discharge Order (Routine); Ordered 06/26/23 Ordered By: Prasad Huang Diet: Advance to usual diet Activity on Discharge: As tolerated Care Plan Goals: AMA. Complete course of linezolid as ordered. Return to ER if worsening or fever chills Health Concerns: AMA. Continue Suboxone as taken previously to hospital Plan of Treatment: AMA. Keep leg elevated Assessment: Follow-up with PCP 2 weeks Discharge Date/Time: 06/26/23 11:20
== END 2023-06-26 11:20 | disposition left against medical advice (07) | DRG 872 ==
LOC: HO.ED 20:35 → HO.EDOVER 22:31 → HO.S3 06-25 12:49
PROVIDERS: Hospitalist; Internal Medicine; Physician Assistant; Admitting Provider Student in an Organized Health Care Education/Training Program; Emergency Provider Internal Medicine; PCP Internal Medicine; Visit Provider Hospitalist
DX: A41.9 Sepsis, unspecified organism (principal); L03.115 Cellulitis of right lower limb; F11.20 Opioid dependence, uncomplicated; F90.9 Attention-deficit hyperactivity disorder, unspecified type; F41.9 Anxiety disorder, unspecified; F10.20 Alcohol dependence, uncomplicated; B19.20 Unspecified viral hepatitis C without hepatic coma; F17.210 Nicotine dependence, cigarettes, uncomplicated; Z71.6 Tobacco abuse counseling; Z86.14 Personal history of Methicillin resistant Staphylococcus aureus infection; Z79.899 Other long term (current) drug therapy
CPT/HCPCS: 36415; 76882; 80048; 80076; 80202; 80307; 82550; 82565; 83036; 83605; 83735; 85025; 85027; 87040; 87389; 93971; 99285; J0571; J0696; J1200; J1650; J2020; J2270; J2405; J3370

== ENCOUNTER → 2023-06-24 22:18 | Outpatient (BNV) | payer OTHER, SELFPAY | PROVIDERS: Admitting Provider Student in an Organized Health Care Education/Training Program; Emergency Provider Internal Medicine; PCP Internal Medicine; Visit Provider Internal Medicine | DX: L03.115 Cellulitis of right lower limb (principal); R79.89 Other specified abnormal findings of blood chemistry; Z86.79 Personal history of other diseases of the circulatory system; Z86.14 Personal history of Methicillin resistant Staphylococcus aureus infection; F11.90 Opioid use, unspecified, uncomplicated; B19.20 Unspecified viral hepatitis C without hepatic coma | CPT/HCPCS: 99223; 99233; 99239; 99499 ==

== ENCOUNTER → 2023-06-24 22:18 | Outpatient (BNV) | payer OTHER, SELFPAY | PROVIDERS: Admitting Provider Student in an Organized Health Care Education/Training Program; Emergency Provider Internal Medicine; PCP Internal Medicine; Visit Provider Physician Assistant | DX: L03.115 Cellulitis of right lower limb (principal) | CPT/HCPCS: 99221 ==

== ENCOUNTER → 2023-06-24 22:18 | Outpatient (BNV) | payer OTHER, SELFPAY | PROVIDERS: Admitting Provider Student in an Organized Health Care Education/Training Program; Emergency Provider Internal Medicine; PCP Internal Medicine; Visit Provider Internal Medicine | DX: F11.90 Opioid use, unspecified, uncomplicated (principal); L03.115 Cellulitis of right lower limb; R79.89 Other specified abnormal findings of blood chemistry; Z86.79 Personal history of other diseases of the circulatory system; Z86.14 Personal history of Methicillin resistant Staphylococcus aureus infection; B19.20 Unspecified viral hepatitis C without hepatic coma | CPT/HCPCS: 99221 ==

== ENCOUNTER → 2023-06-24 22:18 | Outpatient (BNV) | payer OTHER, SELFPAY | PROVIDERS: Admitting Provider Student in an Organized Health Care Education/Training Program; Emergency Provider Internal Medicine; PCP Internal Medicine; Visit Provider Nurse Practitioner Psychiatric/Mental Health | DX: F11.20 Opioid dependence, uncomplicated (principal) | CPT/HCPCS: 99232 ==

== ENCOUNTER 2023-12-25 03:09 | Emergency (ER) | payer MEDICARE, MEDICAID, SELFPAY ==
--- NOTE | ~2023-12-25 | XR_ITS ---
EXAMINATION: XR FOOT, LEFT CLINICAL INFORMATION: Pain. COMPARISON: None available. TECHNIQUE: AP, lateral, and oblique views of the left foot. FINDINGS: The bones and soft tissues are normal. No fracture. Alignment is anatomic. Joint spaces are maintained. XR/XR foot LT min 3V IMPRESSION: No significant abnormality.
[2023-12-25 03:17] VITALS: BP 165/102; PULSE 87; RESP 16; TEMP 36.8; O2SAT 95; BMI 32.6
--- NOTE | 2023-12-25 04:01 | ED_ITS ---
HPI - Extremity Injury (Lower) General Chief Complaint: Extremity Injury, Lower Stated Complaint: L Foot pain Time Seen by Provider: 12/25/23 05:52 Source: patient Mode of arrival: ambulatory Limitations: no limitations History of Present Illness HPI Narrative: 38-year-old male came in for evaluation of left foot pain. Started 4 days ago and progressively getting worse especially patient walked about 2 miles today, patient stated feels like he stepped on a nail or sharp objects, hurt in the mid foot sole. Patient declined definitive trauma or injury or sprain. Related Data Home Medications Medication Instructions Recorded Confirmed clonidine HCl 0.3 mg tablet 0.3 mg PO BEDTIME 05/06/23 06/24/23 dextroamphetamine-amphetamine 15 1 tab PO DAILY@1800 05/06/23 06/24/23 mg tablet dextroamphetamine-amphetamine ER 1 cap PO BID@0800,1200 05/06/23 06/24/23 30 mg 24hr capsule,extend release doxepin 50 mg capsule 50 mg PO BEDTIME 05/06/23 06/24/23 hydroxyzine pamoate 50 mg capsule 100 mg PO BEDTIME 05/06/23 06/24/23 pantoprazole 40 mg tablet,delayed 40 mg PO DAILY@0630 05/06/23 06/24/23 release gabapentin 300 mg capsule 600 mg PO BID@0900,1200 05/07/23 06/24/23 pregabalin 225 mg capsule 225 mg PO BEDTIME 05/07/23 06/24/23 buprenorphine 8 mg-naloxone 2 mg 2 film sublingual BEDTIME 06/24/23 06/24/23 sublingual film (Suboxone) Previous Rx's Medication Instructions Recorded oxycodone 5 mg tablet 10 mg (2 x 5 mg) PO Q6H #20 tabs 06/26/23 Allergies Allergy/AdvReac Type Severity Reaction Status Date / Time No Known Allergies Allergy Verified 12/25/23 03:19 Review of Systems Review of Systems: All other systems are reviewed and are negative Constitutional: Reports as per HPI and Reports no additional constitutional complaints Eyes: Reports as per HPI and Reports no additional eye complaints Reports system reviewed and no additional complaints, except as documented Cardiovascular: Reports as per HPI and Reports no additional cardiovascular complaints Respiratory: Reports as per HPI and Reports no additional respiratory complaints Gastrointestinal: Reports as per HPI and Reports no additional gastrointestinal complaints Genitourinary: Reports no additional female genitourinary complaints Musculoskeletal: Reports no additional musculoskeletal complaints Skin/Breast: Reports system reviewed and no additional complaints, except as docu Psychiatric: Reports no additional psychiatric complaints Endocrine: Reports no additional endocrine complaints Hematologic/Lymphatic: Reports no additional hematologic/lymphatic complaints Allergic/Immunologic: Reports no additional allergic/immunologic complaints Reports system reviewed and no additional complaints, except as documented and Reports Abnormal speech present [facility] Past Medical History Medical History H/O methicillin resistant Staphylococcus aureus H/O endocarditis Opioid use disorder Social History Social History Household Members: Family Household Members Other:: Mother Housing: House Do you presently have visiting nurse or other home services: No Unable to assess alcohol history related to: Unknown Alcohol intake: former Patient Tobacco Use Status: Current everyday Tobacco user Tobacco use type: Cigarette Cigarette Packs Per Day: 1 Cigarettes Per Day: 20.0 e-Cigarette/Vaping Use: Never Used Second Hand Smoke Exposure: No Substance Use Type: Amphetamines, Crack/Cocaine and Marijuana Advance Directives: Yes Advance Directives on File: Yes Advance Directives Date on File: 05/11/23 service: No Physical Exam Vital Signs: Vital Signs: Last Vital Signs Temp 98.4 F 12/25/23 06:56 Pulse 67 12/25/23 06:56 Resp 16 12/25/23 06:56 BP 158/86 H 12/25/23 06:56 Pulse Ox 98 12/25/23 06:56 O2 Del Method Room Air 12/25/23 06:56 BMI result Body Mass Index 32.6 Vital signs have been reviewed and appear to be correct. Blood pressure elevated. Heart rate normal. Respiratory rate normal. Temperature normal. Oxygen saturation normal. Appearance: Alert. Oriented X3. No acute distress. Head: Normal external exam. Normocephalic. Atraumatic. No Jacob signs noted. No raccoon eyes noted Eyes: PERRLA. EOMI. Conjunctiva and sclera normal. Eyelids normal. ENT: TM's Normal. Pharynx normal. Uvula midline. Moist mucous membranes. No trismus noted. No drooling noted. No muffled voice noted. Neck: Normal inspection. Neck supple. FROM. No adenopathy. Thyroid Normal. No meningeal signs. No neck mass noted. CVS: Normal heart rate and rhythm. Heart sound normal. No murmurs noted. Pulses normal throughout. Respiratory: No respiratory distress. Painless inspiration. Breath sounds normal. No wheezes/rales/rhonchi noted. Chest nontender. No accessory muscle usage noted or decreased air movement noted. Abdomen: Soft and nontender. Bowel sounds normal in all 4 quadrants. No distention noted. No organomegaly noted. No visible injury noted. Back: No CVA tenderness. Full range of motion noted. Skin: Skin warm and dry. Normal skin color. Normal skin turgor. No rashes/lesions/lacerations noted. Extremities: No lower extremity edema. Extremities exhibit normal range of motion. Extremities nontender. Neuro: Oriented X 3. Cranial nerve exam: II-XII are grossly intact No motor deficit. No sensory deficit. Reflexes normal. Course Reevaluation(s) Reevaluation #1: Left foot pain, normal neurovascular exam, x-ray showed no fracture. Ice, NSAIDs if needed. Time: 04:04 Medical Decision Making Differential Diagnosis Differential Diagnoses: The differential diagnosis associated with the presentation includes (Left foot foreign body, fracture, sprain) Admission/Observation Consideration of admission/observation: Escalation of care including admission/observation considered Independent Interpretation I performed an independent interpretation of an: Plain X-Ray (Left foot x-ray: No acute fracture or foreign body.) Radiology Impression Discussion of test interpretation with radiology: I have reviewed the radiologist's reading. Discharge Plan Discharge Clinical Impression: Contusion of foot, left Patient Disposition: Home, Self-Care Instructions: Foot Contusion (ED) Additional Instructions: Apply ice to the left foot, rest, take ibuprofen 200 mg tablet every 6 hours if needed for pain, follow-up with Dr. Miranda as instructed. Prescriptions: No Action doxepin 50 mg capsule 50 mg PO BEDTIME clonidine HCl 0.3 mg tablet 0.3 mg PO BEDTIME hydroxyzine pamoate 50 mg capsule 100 mg PO BEDTIME pantoprazole 40 mg tablet,delayed release (DR/EC) 40 mg PO DAILY@0630 dextroamphetamine-amphetamine 15 mg tablet 1 tab PO DAILY@1800 dextroamphetamine-amphetamine 30 mg capsule,extended release 24hr 1 cap PO BID@0800,1200 gabapentin 300 mg capsule 600 mg PO BID@0900,1200 pregabalin 225 mg capsule 225 mg PO BEDTIME buprenorphine-naloxone [Suboxone] 8-2 mg film 2 film sublingual BEDTIME oxycodone 5 mg Tablet 10 mg PO Q6H Qty: 20 0RF Rx Instructions: Partial Fill upon patient request. Referrals: Ryan Miranda MD [Physician] - Abi Conklin MD [Primary Care Provider] - Discharge Date/Time: 12/25/23 07:28
[2023-12-25 06:56] VITALS: BP 158/86; PULSE 67; RESP 16; TEMP 36.9; O2SAT 98
== END 2023-12-25 07:28 | disposition home or self-care (01) ==
PROVIDERS: Emergency Provider Emergency Medicine; PCP Internal Medicine
DX: S90.32XA Contusion of left foot, initial encounter (principal); X58.XXXA Exposure to other specified factors, initial encounter; F17.210 Nicotine dependence, cigarettes, uncomplicated; Y93.9 Activity, unspecified; Y92.9 Unspecified place or not applicable; Y99.9 Unspecified external cause status
CPT/HCPCS: 73630; 99283